=== PATIENT | male | born 1995 | race Caucasian/White ===

== ENCOUNTER 2024-12-26 16:21 | Emergency (ER) | payer OTHER, SELFPAY ==
--- NOTE | 2024-12-26 16:52 | ED_ITS ---
<Statement entered by Rei Hart DO - 12/27/24 00:03> I was consulted by the VANESSA, and we discussed the complexity of problems being addressed. I approved the treatment and management plan for this patient's care in the emergency department, thus performing a substantive portion of the medical decision making. Rei Hart DO Discharge Plan Disposition Patient Disposition: Home, Self-Care Prescriptions Prescriptions: New amoxicillin-pot clavulanate 875-125 mg tablet 1 tab PO Q12H 10 Days Qty: 20 0RF No Action fluoxetine 20 mg capsule 20 mg PO DAILY amoxicillin-pot clavulanate 875-125 mg tablet 1 tab PO BID 10 Days Qty: 20 0RF benzonatate 100 mg capsule 100 mg PO TID PRN (Reason: cough) Qty: 30 0RF Referrals Follow up/Referrals: Provider,Referral, MD [Primary Care Provider, Medical] - See instructions Activity Restrictions/Add. Instructions Additional Instructions/Restrictions: Thank you for allowing us to care for you today. Your symptoms are consistent with a sinus infection given how long they have been going on. Your wheezing may be related to illness but can also be caused by asthma. Please use 4 puffs of the albuterol inhaler every 4 hours as needed for wheezing or while you are sick. You received a one-time steroid dose today. The steroid stays in your system for up to 3 days and will help with airway inflammation. Follow-up with a primary care provider for any symptoms. Return to the emergency department if you have any shortness of breath or continued wheezing. Clinical Impressions Clinical Impression: Acute sinusitis with symptoms > 10 days, Wheezing Instructions Patient Instructions: Sinusitis, Albuterol Print Language Print Language: Tamazight Discharge ED Provider: Rei Hart General Adult HPI <YAMILEX Gamble - Last Filed: 12/26/24 19:55> General Chief complaint: Upper Respiratory Infection Stated complaint: Sent by [facility] xray back & Chest Time Seen by Provider: 12/26/24 16:52 History of Present Illness HPI narrative: This is a 29-year-old male presenting to the emergency department today after being sent in from [facility] for x-ray. Patient reports 2 weeks of upper res piratory symptoms that progressed to pain in his bilateral sinuses. Now the patient feels the infection is in his chest. He reports feeling like he is wheezing. He has never had a known wheezing illness in the past. He denies any chest pain or shortness of breath though notes it is harder to take a deep breath than it typically is. He has not had a fever. No nausea, vomiting, abdominal pain. He does not have a primary care provider. Related Data Home Medications ?Medication ?Instructions ?Recorded ?Confirmed fluoxetine 20 mg capsule 20 mg PO DAILY 12/21/2412/16 Previous Rx's ?Medication ?Instructions ?Recorded amoxicillin 875 mg-potassium 1 tab PO BID 10 days #20 tabs 12/21/24 clavulanate 125 mg tablet benzonatate 100 mg capsule 100 mg PO TID PRN cough #30 caps 12/23/24 amoxicillin 875 mg-potassium 1 tab PO Q12H 10 days #20 tabs 12/26/24 clavulanate 125 mg tablet Allergies Allergy/AdvReac Type Severity Reaction Status Date / Time No Known Allergies Allergy Verified 12/26/24 15:57 [facility] <YAMILEX Gamble - Last Filed: 12/26/24 19:55> [facility] Disclaimer: The information contained in this section may have been updated after the patient was seen, as this information can be updated by other users. Medical History Right clavicle fracture History of fracture of clavicle History of depression Hx of bipolar disorder History of anxiety Surgical History Hx of neck surgery Social History Smoking Status: Current every day smoker smoking status start date: Vape alcohol intake: never current occupational status: employed Travel in the last 8 weeks?: None Have you lived/traveled outside US in past 30 days?: No Contact w/someone who lives/traveled outside US past 30 days?: No Exposure to someone with infectious disease in past 14 days?: No Do you have a fever (greater than 100.4 F or 38 C)?: No Have you tested positive for COVID-19?: No Exposed to someone with COVID-19 in past 14 days?: No Do you have a sore throat?: No Do you have a cough?: No Do you have any weakness?: No Do you have any diarrhea?: No Are you experiencing any unusual bleeding?: No Do you have any muscle aches/pain?: No Do you have any abdominal pain?: No Are you experiencing loss of taste or smell?: No <YAMILEX Gamble - Last Filed: 12/26/24 19:55> ROS Obtained: Yes Systems reviewed as appropriate & no additional complaints except as documented Physical Exam <YAMILEX Gamble - Last Filed: 12/26/24 19:55> General General appearance: alert and in no apparent distress Head Head exam: atraumatic and normocephalic Neck Neck exam: Present full ROM Respiratory Respiratory exam: Present wheezes and prolonged expiratory phase; Absent stridor or accessory muscle use Expanded Respiratory Exam Location: Left: wheezes (Expiratory wheezes present in all lung avila with prolonged expiratory phase.), Right: wheezes (Expiratory wheezes present in all lung avila with prolonged expiratory phase.), Upper: wheezes (Expiratory wheezes present in all lung avila with prolonged expiratory phase.) and Lower: wheezes (Expiratory wheezes present in all lung avila with prolonged expiratory phase.) Cardiovascular Cardiovascular exam: Present regular rate and normal rhythm Abdominal Exam Abdominal exam: Present soft; Absent distention or tenderness Neurological Exam Neurological exam: Present alert and oriented X3 Medical Decision Making <YAMILEX Gamble - Last Filed: 12/26/24 19:55> Medical Records Screening: Per USPSTF and CDC recommendations, given the prevalence of disease in our region, it is our hospital?s policy to screen for HIV and viral Hepatitis for all patients aged 18 and over and those with ongoing risk factors. Humberto Inquiry Pt receiving controlled substance: No Vital Signs: 12/26/24 16:59 12/26/24 17:02 Temperature 98.4 F Temperature Source Oral Pulse Rate [Left Radial] 64 Respiratory Rate 20 Blood Pressure [Right Arm] 132/73 Blood Pressure Mean [Right Arm] 92 02 Sat by Pulse Oximetry 100 100 Oxygen Delivery Method Room Air Room Air Orders (Tests/Meds): ED MEDICATIONS Generic Name Dose Route Start Last Admin Trade Name Freq PRN Reason Stop Dose Admin Albuterol Sulfate 4 puff 12/26/24 19:47 Albuterol-Hfa 90mcg/Puff Inhaler 8gm IH 01/25/25 19:46 Q4HP PRN Shortness Of Breath Discontinued Medications Generic Name Dose Route Start Last Admin Trade Name Dominga PRN Reason Stop Dose Admin Albuterol Sulfate 20 mg 12/26/24 18:29 12/26/24 18:48 Albuterol 0.083% 2.5 Mg/3 Ml [facility] 12/26/24 18:30 20 mg ONCE ONE Administration Albuterol/Ipratropium 9 ml 12/26/24 17:08 12/26/24 17:35 Ipratropium/Albuterol 3 Ml [facility] 12/26/24 17:09 9 ml ONCE ONE Administration Dexamethasone 10 mg 12/26/24 17:08 12/26/24 17:35 Dexamethasone 4mg Tablet PO 12/26/24 17:09 10 mg ONCE ONE Administration Miscellaneous 1 unit 12/26/24 19:47 Aerochamber/Optihaler [facility] 12/26/24 19:48 ONCE ONE ORDERS Category Date Time Status XR chest portable Stat Exams 12/26/24 17:08 Completed Medical Decision Narrative: In summary, this is a 29-year-old male presenting to the emergency department today for evaluation after being sent in by urgent care. Patient has had over 2 weeks of upper respiratory symptoms including a runny nose and cough. Symptoms now seem to be in his chest with wheezing. This has not happened in the past. Patient denies actual chest pain or shortness of breath. He does feel it is hard to take a deep breath, and in doing so, it causes a coughing fit. On exam patient is well-appearing and in no acute distress. Sitting comfortably on hospital stretcher. Heart sounds are normal. Respiratory rate and effort are normal. There is a prolonged expiratory phase with expiratory wheezing in all lung avila. There is tenderness to the bilateral maxillary sinuses. No tenderness of the frontal sinuses. Differential diagnoses include but are not limited to asthma exacerbation, reactive airway, upper respiratory infection, sinusitis, pneumonia, among others. We will obtain a chest x-ray. We will give DuoNebs and Decadron. Will reassess following treatments. On reassessment, patient continues to have expiratory wheezing in all avila. We will proceed with hour-long albuterol treatment. Chest x-ray is normal with no acute infiltrate or sign of infection. 7:50 PM Patient does not wish to take the hour-long albuterol treatment at this time. He reports it makes his cough worse. He prefers an albuterol inhaler. He understands recommendation is for an hour-long albuterol treatment, however he is refusing that at this time. Patient was given an albuterol MDI and instructed on use. Augmentin was sent to the patient's pharmacy to treat his acute sinusitis. A list of primary care providers accepting new patients was given to the patient and he will call to arrange a new patient visit. Return precautions were discussed and understood. Vital signs remain normal. All questions have been answered and he is comfortable with discharge at this time. <Rei Hart, DO - Last Filed: 12/26/24 18:26> Medical Records Medical records reviewed: Yes I reviewed the patient's medical records. Vital Signs: 12/26/24 16:59 12/26/24 17:02 Temperature 98.4 F Temperature Source Oral Pulse Rate [Left Radial] 64 Respiratory Rate 20 Blood Pressure [Right Arm] 132/73 Blood Pressure Mean [Right Arm] 92 02 Sat by Pulse Oximetry 100 100 Oxygen Delivery Method Room Air Room Air Orders (Tests/Meds): ED MEDICATIONS Generic Name Dose Route Start Last Admin Trade Name Freq PRN Reason Stop Dose Admin Albuterol Sulfate 4 puff 12/26/24 19:47 Albuterol-Hfa 90mcg/Puff Inhaler 8gm [facility] 01/25/25 19:46 Q4HP PRN Shortness Of Breath Discontinued Medications Generic Name Dose Route Start Last Admin Trade Name Freq PRN Reason Stop Dose Admin Albuterol Sulfate 20 mg 12/26/24 18:29 12/26/24 18:48 Albuterol 0.083% 2.5 Mg/3 Ml [facility] 12/26/24 18:30 20 mg ONCE ONE Administration Albuterol/Ipratropium 9 ml 12/26/24 17:08 12/26/24 17:35 Ipratropium/Albuterol 3 Ml [facility] 12/26/24 17:09 9 ml ONCE ONE Administration Dexamethasone 10 mg 12/26/24 17:08 12/26/24 17:35 Dexamethasone 4mg Tablet PO 12/26/24 17:09 10 mg ONCE ONE Administration Miscellaneous 1 unit 12/26/24 19:47 Aerochamber/Optihaler [facility] 12/26/24 19:48 ONCE ONE ORDERS Category Date Time Status XR chest portable Stat Exams 12/26/24 17:08 Completed ECG Data Tracing #1: I reviewed this ECG and interpreted as documented below: EKG personally turbid by me demonstrates sinus bradycardia with a rate of 57 bpm, normal axis, no LA prolongation, narrow QRS, no QTc prolongation. No ST elevation or depression. No overt signs of ischemia or arrhythmia. No T wave inversions in the inferior leads. Critical Care <YAMILEX Gamble - Last Filed: 12/26/24 19:55> Critical Care Time Critical Care Time: No
--- OUTSIDE RECORDS SUMMARY | 2024-12-26 16:54 | XMS_ITS | Encounter Summary ---
Author Organization [facility] Address [address] [place] [address] Care Team Providers Care Painter And Decorator Apprentice Name Role Phone Levi Turner APRN Primary Care Provide r Encounter Details Date Type Department Care Team (Late st Contact Info) Description 05/06/2013 Conversion Encounter [facility] HISTORICAL CONV [address] [place] [address] Interface, See Report Social History Tobacco Use Types Packs/Day Years Used Date Smoking Tobacco: Never Assessed Sex and Gender Information Value Date Recorded Sex Assigned at Not on file Legal Sex Male 10:54 AM EDT Gender Identity Not on file Sexual Orientation Not on file documented as of this encounter ED Notes * Interface, See Report - 05/06/2013 10:23 PM EST Clinical Report - Physicians/Mid Levels [facility] Emergency Department [address] [place], [place] [id number] 05/06/2013 Patient: JEVON ALONSO Sex: M : 1995 Age: 17y Arrived- By private vehicle. Historian- patient. HISTORY OF PRESENT ILLNESS Chief Complaint: rib pain for several months. It is described as located in the left chest area. Is still present. At its maximum, severity described as mild. When seen in the E.D., severity described as mild. Modifying factors- worsened by movement, cough and deep breaths. No nausea, vomiting, difficulty breathing or diaphoresis. (worse with cough and deep breath and some moving). REVIEW OF SYSTEMS No fever, chills, cough, pedal edema or skin rash. All systems otherwise negative, except as recorded above. PAST HISTORY See nurses notes. No history of hypertension or diabetes mellitus. Additional Problems: Palpitations. Immunizations. Medications: None. Allergies: None. SOCIAL HISTORY Nonsmoker. No alcohol use or drug use. ADDITIONAL NOTES The nursing notes have been reviewed. PHYSICAL EXAM Appearance: Alert. Oriented X3. No acute distress. Eyes: Eyes normal inspection. ENT: Pharynx normal. Neck: Normal inspection. Neck supple. No JVD, lymphadenopathy or thyromegaly. CVS: Normal heart rate and rhythm. Heart sounds normal. Respiratory: No respiratory distress. Chest pain reproducible with palpation of the lateral chest wall, with movement of the left arm and with deep breathing. Breath sounds normal. No splinting, decreased air movement, rales, rhonchi or wheezes. Abdomen: Soft and nontender. Bowel sounds normal. No mass. Skin: Skin warm and dry. Normal skin color. No rash. Extremities: No lower extremity edema. Neuro: Oriented X 3. No motor deficit. LABS, X-RAYS, AND EKG Chest X-ray: No acute disease. PROGRESS AND PROCEDURES Disposition: Discharged. Condition: good and stable. CLINICAL IMPRESSION Costochondritis. INSTRUCTIONS (ibufprofen for discomfort). Warnings: GENERAL WARNINGS: Return or contact your physician immediately if your condition worsens or changes unexpectedly, if not improving as expected, or if other problems arise. Follow-up: Follow up with your doctor. (Electronically signed by Markus Messina M.D. 05/07/2013 4:27) documented in this encounter Plan of Treatment Not on file documented as of this encounter Procedures Procedure Name Priority Date/Time Associated Diagnosis Comments XR CHEST PA AND LATERAL Routine 05/07/2013 1:19 AM EST documented in this encounter Results * X-RAY CHEST PA AND LATERAL (05/07/2013 1:19 AM EST) Anatomical Region Laterality Modality Body, Chest N/A Radiographic Kailyn ging 05/07/2013 1:19 AM EST Narrative 05/07/2013 9:07 AM EST HISTORY: chest pain PA AND LATERAL CHEST: FINDINGS: The heart, mediastinum and pulmonary vasculature appear within normal limits. The lungs appear mildly hyperinflated and clear. No edema, effusion or pneumothorax is seen. IMPRESSION- No evidence of active chest disease. No significant interval change from previous 11/20/2011 exam. FAX TO: A E: 05/07/2013 [employer] Gamaliel [employer] Released Date Time- 05/07/132211 Procedure Note Ganga Powell MD - 01/06/2015 HISTORY: chest pain PA AND LATERAL CHEST: FINDINGS: The heart, mediastinum and pulmonary vasculature appear within normal limits. The lungs appear mildly hyperinflated and clear. No edema, effusion or pneumothorax is seen. IMPRESSION- No evidence of active chest disease. No significant interval change from previous 11/20/2011 exam. FAX TO: Livia E: 05/07/2013 [employer] Gamaliel [employer] Released Date Time- 05/07/132211 Markus Messina MD [facility] MICHELLE Final Result documented in this encounter Visit Diagnoses Not on filedocumented in this encounter Care Teams Painter And Decorator Apprentice Relationship Specialty Start Date End Date Levi Turner APRN PCP - General Internal Medicine 06/26/19 documented as of this encounter
--- OUTSIDE RECORDS SUMMARY | 2024-12-26 16:54 | XMS_ITS | Clinical Summary ---
Author Organization [facility] Address [address] [place] [address] Care Team Providers Care Manager Custom Name Role Phone Levi Turner JESICA Primary Care Provide r Allergies No known active allergies Medications CLARAVIS 30 MG capsule TK 1 C PO BID 06/19/2019 Active Thiamine 50 MG capsuleIndicati ons:Alcohol abuse Take 1 capsule by mouth Daily. 30 each 11 06/26/2019 Active escitalopram (Lexapro) 10 MG tabletIndicatio ns:Bipolar 1 disorder, mixed Take 1 tablet by mouth Daily. 30 tablet 07/11/2019 Active Active Problems Problem Noted Date Diagnosed Date Depression 06/26/2019 Acne vulgaris 06/26/2019 Overview (06/26/2019): Impression: takes claravis 30 mg capsules Alcohol abuse 06/26/2019 Overview (06/26/2019): Impression: been drinking since he was 16. Mother passed at age 14 and watched a friend drown while trying to save him. Assessment & Plan (07/02/2019 11:04 AM EDT): Psychological condition is worsening. Medication changes per orders. Referral to psychiatry. Psychological condition will be reassessed in 2 weeks. Bipolar 1 disorder, mixed 06/26/2019 Assessment & Plan (07/02/2019 11:03 AM EDT): Psychological condition is newly identified. Medication changes per orders. Referral to psychiatry. Psychological condition will be reassessed in 2 weeks. Patient started on Vraylar this visit. PTSD (post-traumatic stress disorder) 06/26/2019 Immunizations Immunization Administration Dates Next Due Tdap 10/25/2018 flucelvax quad pfs =>4 YRS 06/26/2019 Family History Medical History Relation Name Comments Heart disease Father Hypertension Father Diabetes Maternal Grandmother Thyroid disease Mother Cancer Paternal Grandfather Relation Name Status Comments Father Maternal Grandmother Mother Paternal Grandfather Social History Tobacco Use Types Packs/Day Years Used Date Smoking Tobacco: Light Smoker Smokeless Tobacco: Current Alcohol Use Standard Drinks/Week Comments Yes 60 (1 standard drink = 0.6 oz pu re alcohol) AUDIT-C Answer Date Recorded Frequency of Alcohol Consumption 4 or more times a week 06/26/2019 Average Number of Drinks 10 or more 020 Frequency of Binge Drinking Weekly 06/15 Abuse Screen Answer Date Recorded Unsafe at Home or Work/School Not on file Feels Threatened by Someone? Not on file 12/2022 Does Anyone Keep You from Co ntacting Others or Doint Things Outside the Home? Not on file 01/23/2023 Physical Sign of Abuse Present Not on file 1 Housing Stability Answer Date Recorded Current Living Arrangements Not on file 12/2022 Potentially Unsafe Housing Conditions Not on karen e 01/23/2023 Family and Community Support Answer Star e Recorded Help with Day-to-Day Activities Not on file 01/23/2023 Lonely or Isolated Not on file 01/23/2023 Employment Answer Date Recorded Do you want help finding or keeping work or a suzanne b? Not on file 01/23/2023 Disabilities Answer Date Recorded Concentrating, Remembering, or Making Decisions Difficulty Not on file 01/23/2023 Doing Errands Independently Difficulty Not on fi le 01/23/2023 Education Answer Date Recorded Help with school or training? Not on file Preferred Language Not on file 01/23/2023 Sex and Gender Information Value Date Recorded Sex Assigned at Not on file Legal Sex Male 10:54 AM EDT Gender Identity Not on file Sexual Orientation Not on file Last Filed Vital Signs Vital Sign Reading Time Taken Comments Blood Pressure 160/100 06/26/2019 1:35 PM EDT Pulse 76 06/26/2019 1:35 PM EDT Temperature 37 C (98.6 F) 02/04/2016 11:17 AM EDT Respiratory Rate 16 06/26/2019 1:35 PM EDT Oxygen Saturation 98% 06/26/2019 1:35 PM EDT Inhaled Oxygen Concentration - - Weight 79.8 kg (176 lb) 06/26/2019 1:35 PM EDT Height 170.2 cm (5' 7 ) 06/26/2019 1:35 PM EDT Body Mass Index 27.57 06/26/2019 1:35 PM EDT Plan of Treatment Health Maintenance Due Date Last Done Comments ANNUAL PHYSICAL 06/26/2019 HEPATITIS C SCREENING 06/26/2019 COVID-19 Vaccine (2023-2 5 season) 2024 INFLUENZA VACCINE 01/15/2025 06/26/2019, 06/26/2019 TDAP/TD VACCINES (3 - Td or Tdap) 10/25/2028 10/25/2018, 08/21/2016 Pneumococcal Vaccine 0-49 Aged Out No longer eligible based on patient's age to complete this topic Insurance Care Teams Manager Custom Relationship Specialty Start Date End Date Levi Turner APRN PCP - General Internal Medicine 06/26/19
--- OUTSIDE RECORDS SUMMARY | 2024-12-26 16:54 | XMS_ITS | Clinical Summary ---
Author Organization [facility] Address [address] [place] [address] Care Team Providers Care Glue Sprayer Name Role Phone Unavailable Primary Care Provider Unavailabl e Family History Medical History Relation Name Comments Heart attack Other Relation Name Status Comments Other Social History Tobacco Use Types Packs/Day Years Used Date Smoking Tobacco: Never Smokeless Tobacco: Current Sex and Gender Information Value Date Recorded Sex Assigned at Not on file Legal Sex Male 8:00 PM EDT Gender Identity Not on file Sexual Orientation Not on file Last Filed Vital Signs Vital Sign Reading Time Taken Comments Blood Pressure 135/80 03/20/2019 2:14 PM EST Pulse - - Temperature - - Respiratory Rate 16 03/20/2019 2:14 PM EST Oxygen Saturation - - Inhaled Oxygen Concentration - - Weight 85.4 kg (188 lb 4.4 oz) 03/20/2019 2:14 P M EST Height 170.2 cm (5' 7 ) 03/20/2019 2:14 PM EST Body Mass Index 29.49 03/20/2019 2:14 PM EST Plan of Treatment Not on file Insurance AN[employer]
[2024-12-26 16:59] VITALS: BP 132/73; PULSE 64; RESP 20; TEMP 36.9; O2SAT 100; BMI 21.9
[2024-12-26 17:02] VITALS: O2SAT 100
--- NOTE | 2024-12-26 17:08 | XR_ITS ---
PROCEDURE INFORMATION: Exam: XR Chest Exam date and time: 12/26/2024 5:15 PM Age: 29 years old Clinical indication: Cough and wheezing; Additional info: Wheezing, cough x 10 days TECHNIQUE: Imaging protocol: Radiologic exam of the chest. Views: 1 view. COMPARISON: No relevant prior studies available. FINDINGS: Lungs: Clear lungs. Pleural spaces: No pneumothorax. No sizable pleural effusion. Heart/Mediastinum: No cardiomegaly. Bones/joints: Left clavicle fixation. IMPRESSION: Clear lungs.
--- NOTE | 2024-12-26 17:13 | ECG_ITS ---
APPROVED REPORT Exam: Resting ECG HR:57 bpm ECG Measurements Heart Rate 57 AXES WV 155 P 75 QRSd 99 QRS 87 QT 396 T 79 QTc 390 Conclusion Sinus bradycardia Normal axis Normal intervals No STEMI Electronically signed by : Rei Hart, 12/26/2024 23:44:21
[2024-12-26] MEDS: IPRATROPIUM/ALBUTEROL 3 ML NEB 9 ML IH (17:35)
[2024-12-26] MEDS: DEXAMETHASONE 4MG TABLET 10 MG PO (17:35)
[2024-12-26] MEDS: ALBUTEROL 0.083% 2.5 MG/3 ML NEB 20 MG IH (18:48)
--- NOTE | 2024-12-26 19:33 | PC.NURSE ---
Went in to assess pt for first time, stalin jean was running laying on counter, when asked if he finished it he stated NO, It hurts toio bad. Pt also states he wants to leave. Dr friedman.
[2024-12-26] MEDS: ALBUTEROL-HFA 90MCG/PUFF INHALER 8GM 4 PUFF IH (19:57)
[2024-12-26] MEDS: AEROCHAMBER/OPTIHALER 1 UNIT MC (19:57)
[2024-12-26 20:10] VITALS: BP 140/90; PULSE 91; RESP 13; TEMP 36.9; O2SAT 100
== END 2024-12-26 20:12 | disposition home or self-care (01) ==
PROVIDERS: Emergency Provider Student in an Organized Health Care Education/Training Program
DX: R06.2 Wheezing (principal); J01.90 Acute sinusitis, unspecified; F17.200 Nicotine dependence, unspecified, uncomplicated
CPT/HCPCS: 71045; 93005; 99283; J8540

== ENCOUNTER 2025-03-09 09:15 | Outpatient (CLI) | payer OTHER, SELFPAY ==
--- OUTSIDE RECORDS SUMMARY | 2023-10-16 08:15 | XMS_ITS | Continuity of Care Document ---
Author Organization [facility] Address [address] [place] [address] Phone Care Team Providers Care Sound Effects Person Name Role Phone Jerri Feliciano APRN Unavailable Unavail able Procedures Procedure Date OFFICE/OUTPATIENT VISIT, [facility] Advance Directives Directive Yes / No Effective Date File Name No Information Encounters Encounter Description Practice Location Reason(s) For Visit Diagnoses Date Provider Encounter Disposition OFFICE/OUTPA TIENT VISIT, [facility], [address] [place], [address], [place] tel:[phone] [facility] MAT Follow-up (chief complaint) Alcohol dependence, uncomplicated 4 Braden Guthrie. [address] [place] [address], [id number], [place]. tel:[phone] Family History Family Member Type Diagnosis Age At Onset No Information Payers Payer name Insurance type Identifiers Authorization(s) Com jackie Turner Medicaid O shaan ID: [id number] Name: Coverage Status Eligibility Check on: [id number] nship to Subscriber: selfPayer Address: [address] [address], [place], [place], [id number] Phone: Medicaid Wrap Payer MC r ID: [id number] Name: Coverage Status Eligibility Check on: [id number] nship to Subscriber: selfPayer Address: [address], [place], [place], [id number], [place] Phone: Social History Type Description Quantity Date Captured Comments Alcohol Use Details Unknown Caffeine Use Details Unknown Tobacco Use Status No Information Smoking Status No Information Sex Male Current Gender Male (finding) Chief Complaint And Reason For Visit From encounter dated '10/16/2023 13:15'. MAT Follow-up (chief complaint). Description: MAT follow-up. Current medication/dose 1st injection today. Compliance: Drug Test completed, BH in last Month and UDS today WNL. Comments: pt at [place], pt there for alcohol, pt getting first injection today no DC date set. Plan Of Treatment Date Type Action Status Goal Preventive Visit. Due on Oct due Goal Depression screening. Due on due History Of Present Illness Encounter Date Complaint History Of Prese nt Illness MAT Follow-up MAT follow-up. C urrent medication/dose 1st injection today. Compliance: Drug Test completed, BH in last Month and UDS today WNL. Comments: pt at [place], pt there for alcohol, pt getting first injection today no DC date set. Functional Status Date Description Comments No Information Instructions Date Instruction Additional Infor mation pt identified via [facility] today, seen pt via zoom at [facility] today pt getting monthly vivatrol next appt in 4 weeks Related to Alcohol dependence, uncomplicated Assessments Type Assessment Date assessment Alcohol dependence, uncomplicate d Mental Status Date Description Comments Orientation - Oriented to time, place, person, situation.
--- NOTE | 2025-03-09 09:17 | XR_ITS ---
PROCEDURE INFORMATION: Exam: XR Left Elbow Exam date and time: 03/09/2025 9:21 AM Age: 29 years old Clinical indication: Pain; Elbow; Left; Additional info: Pain with movement TECHNIQUE: Imaging protocol: Radiologic exam of the left elbow. Views: 3 or more views. COMPARISON: No relevant prior studies available. FINDINGS: Bones/joints: There are no fractures or dislocations in the left elbow. Soft tissues: Soft tissues are unremarkable. IMPRESSION: No evidence of osseous injury to the left elbow.
--- OUTSIDE RECORDS SUMMARY | 2025-03-09 09:18 | XMS_ITS | Encounter Summary ---
Author Organization [employer] ([place], [place], [place], [place], [place]) Address [address] [place] [address] Care Team Providers Care Warehouse Delivery Manager Name Role Phone Unavailable Primary Care Provider Unavailabl e Encounter Details Date Type Department Care Team (Late st Contact Info) Description 05/13/2018 Transcribed Document [facility] [place] [facility] [place] [address] ProviderSherine MD [address] [place] [id number] Social History Tobacco Use Types Packs/Day Years Used Date Smoking Tobacco: Never Assessed Sex and Gender Information Value Date Recorded Sex Assigned at Not on file Legal Sex Male 5:59 PM CDT Gender Identity Not on file Sexual Orientation Not on file documented as of this encounter Miscellaneous Notes * [employer]ner Conversion Note - Sherine ProviderMD - 05/13/2018 1:21 AM ASSEMBLY RIVETER ED Discharge Entered On: 05/13/2018 1:21 EST Performed On: 05/13/2018 1:21 EST by ALEXANDREA CHILDERS RN Discharge Process Patient Disposition : Discharge Personal Belongings With Patient : Yes Patient Education Completed : Yes Teaching Evaluation : Verbalizes understanding IV Discontinued : Not applicable Nursing Documentation Completed : Yes ALEXANDREA CHILDERS RN - 05/13/2018 1:21 EST ED Discharge Discharge To : Home with ambulatory/outpatient follow-up Mode Of Departure : Ambulatory Accompanied By : Mother Discharge Instructions Reviewed With, Opportunity For Questions Given : Patient Prescriptions Given to Patient : Yes Number of Prescriptions Given : 1 ALEXANDREA CHILDERS RN - 05/13/2018 1:21 EST Electronically signed by Tiffanie [facility] Conversion Planning Official Pete at 08/01/2022 5:11 PM CDT documented in this encounter Plan of Treatment Not on file documented as of this encounter Visit Diagnoses Not on filedocumented in this encounter
--- OUTSIDE RECORDS SUMMARY | 2025-03-09 09:18 | XMS_ITS | Encounter Summary ---
Author Organization [employer] ([place], [place], [place], [place], [place]) Address [address] [place] [address] Care Team Providers Care Production Control Expediter Name Role Phone Unavailable Primary Care Provider Unavailabl e Encounter Details Date Type Department Care Team (Late st Contact Info) Description 05/13/2018 Transcribed Document [facility] [place] [facility] [place] [address] ProviderSherine MD [address] [place] [id number] Social History Tobacco Use Types Packs/Day Years Used Date Smoking Tobacco: Never Assessed Sex and Gender Information Value Date Recorded Sex Assigned at Not on file Legal Sex Male 5:59 PM CDT Gender Identity Not on file Sexual Orientation Not on file documented as of this encounter Miscellaneous Notes * [employer]ner Conversion Note - Sherine ProviderMD - 05/13/2018 1:22 AM 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 TEACHER [facility] [address] [place] [address] Patient Information Name: JEVON ALONSO Age: 22 Years Date of : 1995 Arrival Time: 05/12/2018 23:56:00 Diagnosis Anxiety Primary Care Physician: FLORENCE BENSON DR Provider Information Primary Provider: CLAUDE LU Secondary Provider: JEVON ALONSO has been given the following list of patient education materials, prescriptions and follow-up instructions: Follow-up Instructions: With: Address: When: Follow up with primary care provider Within 2 to 3 days Patient Education Materials: Generalized Anxiety Disorder Generalized anxiety disorder (TERRI) is a mental disorder. It interferes with life functions, including relationships, work, and school. TERRI is different from normal anxiety, which everyone experiences at some point in their lives in response to specific life events and activities. Normal anxiety actually helps us prepare for and get through these life events and activities. Normal anxiety goes away after the event or activity is over. TERRI causes anxiety that is not necessarily related to specific events or activities. It also causes excess anxiety in proportion to specific events or activities. The anxiety associated with TERRI is also difficult to control. TERRI can vary from mild to severe. People with severe TERRI can have intense waves of anxiety with physical symptoms (panic attacks). SYMPTOMS The anxiety and worry associated with TERRI are difficult to control. This anxiety and worry are related to many life events and activities and also occur more days than not for 6 months or longer. People with TERRI also have three or more of the following symptoms (one or more in children): ??? Restlessness. ? Fatigue. ??? Difficulty concentrating. ? Irritability. ??? Muscle tension. ??? Difficulty sleeping or unsatisfying sleep. DIAGNOSIS TERRI is diagnosed through an assessment by your health care provider. Your health care provider will ask you questions about?your mood,?physical symptoms, and events in your life. Your health care provider may ask you about your medical history and use of alcohol or drugs, including prescription medicines. Your health care provider may also do a physical exam and blood tests. Certain medical conditions and the use of certain substances can cause symptoms similar to those associated with TERRI. Your health care provider may refer you to a mental health specialist for further evaluation. TREATMENT The following therapies are usually used to treat TERRI: ??? Medication. Antidepressant medication usually is prescribed for long-term daily control. Antianxiety medicines may be added in severe cases, especially when panic attacks occur. ? Talk therapy (psychotherapy). Certain types of talk therapy can be helpful in treating TERRI by providing support, education, and guidance. A form of talk therapy called cognitive behavioral therapy can teach you healthy ways to think about and react to daily life events and activities. ??? Stress management?techniques. These include yoga, meditation, and exercise and can be very helpful when they are practiced regularly. A mental health specialist can help determine which treatment is best for you. Some people see improvement with one therapy. However, other people require a combination of therapies. This information is not intended to replace advice given to you by your health care provider. Make sure you discuss any questions you have with your health care provider. Document Released: 07/29/2013 Document Revised: 04/24/2015 Document Reviewed: 07/29/2013 [employer] Interactive Patient Education ? 2017 [employer] Allergies: No Known Medication Allergies Medication Information: Prescription Display hydrOXYzine (Vistaril 25 mg oral capsule) 1 Cap, Oral, Q6H, PRN as needed for anxiety, # 20 Cap, 0 Refill(s) Laboratory or Other Results This Visit (last charted value for your 05/12/2018 visit) Urinalysis 05/13/18 00:08:00 Urine Nitrite: Negative Urine Leukocyte Esterase: Negative Urine Appearance: Clear Urine Glucose Dipstick: Negative Urine Blood Dipstick: Negative Urine Type: U CleanCatch Urine Urobilinogen Dipstick: 0.2 EU/dL Urine Protein Dipstick: 30 Ur Squamous Epithelial Cells: 0-2 /HPF Urine Color: Yellow Urine Ketones Dipstick: Negative Ur Mucous: Trace Urine pH Dipstick: 8.0 -- Normal range between ( 6.0 and 8.0 ) Urine Bilirubin Dipstick: Negative Urine Specific [place]: 1.020 -- Normal range between ( 1.005 and 1.030 ) Toxicology 05/13/18 00:08:00 UDS Amp: Negative UDS Dulce: Negative UDS Benzo: Negative UDS Todd: Negative UDS Meth: Negative UDS Methamp: Negative UDS Opi: Negative UDS PCP: Negative UDS TCA: Negative UDS THC: Positive Medication Comment: Procedures: Laboratory Orders Name Status UAMIC Completed UAMICRX Completed UDS3 Completed Radiology Orders Name Status CR Chest 1 Vw Portable Ordered Cardiology Orders No cardiology orders were placed. This statement is to verify that JEVON ALONSO was seen at [facility] Emergency Department on ,05/13/2018 01:22:11. This is not a work excuse, if a work excuse was needed it will be in addition to this statement as a separate form. IMPORTANT: The examination and treatment you have received in the Emergency Department has been done to provide an appropriate evaluation and stabilizing treatment on an emergency basis only. Given the limited resources, it is not meant to be a substitute for complete medical care. The follow-up doctor you named will receive a copy of your records and all test reports. IT IS IMPORTANT THAT YOU SCHEDULE A FOLLOW-UP APPOINTMENT AND ARE RE-EVALUATED. You should report any new complaints, symptoms, or remaining problems at that time. IT IS IMPOSSIBLE FOR THE EMERGENCY DEPARTMENT TO RECOGNIZE AND TREAT ALL ELEMENTS OF INJURY OR ILLNESS IN A SINGLE VISIT. If you have been referred to a specialist physician, it means that we believe you may have a condition that requires the expertise of a specialist. KEEP IN MIND THAT THE SPECIALIST HAS HIS/HER OWN OFFICE POLICIES WHICH MAY REQUIRE PROPER INSURANCE OR PAYMENT UP FRONT BEFORE THE SPECIALIST WILL SEE YOU. It is your responsibility to call the specialist physician to make an appointment. We do not have the ability to identify specialists/physicians that work with specific insurance companies. Please be advised that all financial charges or billing practices are determined by that practice, not the hospital. If your insurance company requires that you see a specialist from their approved list, it is your responsibility to contact your insurance company to make those arrangements. It is also your responsibility to follow any other requirements of your insurance company necessary to obtain coverage for claims submitted. If you had special tests, such as EKG???s or X-rays, the interpretation of your tests given to you by the Emergency Dept. Physician is a preliminary report. Some fractures and illnesses fail to show up on preliminary tests. We will review them again within 24-48 hours. We will call you if there are any new suggestions. If your symptoms continue notify your physician. After you leave, you should follow the instructions below. In all events, you may obtain a copy of your Emergency Department visit from Medical Records. Please call to be directed to this department. We will bill your insurance; however, you are responsible today for any co-pay amounts. You will receive a separate bill for any services you may have received including: emergency, radiology, or pathology physicians. Please be sure we have an accurate contact phone number and address, should we need to call you for any reason. CIGARETTE SMOKING: The facts are clear; cigarette smoking will shorten your life. Smoking can cause many illnesses along the way. As a healthcare provider, [facility] recommends that you stop smoking. Assistance with quitting is available by contacting 5-452-TKRD-NOW. This is a free resource providing counseling, support, and referral. Or you may contact your personal physician. As part of your treatment plan, your physician may have prescribed a limited course of a controlled substance. This medication may be given to help people with moderate or severe pain or for other medical conditions, but there are risks involved with treatment. Common side effects may include nausea, constipation, drowsiness, sweating, itching, dry mouth, and rash. More serious side effects may include cognitive and motor impairment, like problems with thinking, concentrating, alertness, and movement (e.g. slowed reflexes), and driving and operating heavy machinery can be dangerous. It is important for you to talk to your physician if you have these side effects or questions. These controlled substances can produce physical dependence and be habit-forming if taken for an extended period of time, which means that the body has gotten used to them and may experience withdrawal symptoms if they are abruptly stopped. Withdrawal symptoms can include runny nose, sweating, goose bumps, diarrhea, abdominal cramping, rapid heartbeat, difficulty sleeping, and nervousness. The home medications listed are only as accurate as the information you provided. Please continue taking all of your medications prescribed by your Primary Care Provider unless specifically told to change or discontinue the medication. Please direct any questions regarding your home medications to your Primary Care Provider. YOU ARE THE MOST IMPORTANT FACTOR IN YOUR RECOVERY. ?? Follow your instructions carefully ?? Take your medicines as prescribed ?? Most important, see a provider as discussed. If you do not have a provider, we can provide a list of clinics Confidential This message and accompanying documents are covered by Electronic Communications Privacy Act 18 U.S.C. ???Sections 0780-3944,?? and contain information intended for the specified individual(s) only. This information is confidential. If you are not the intended recipient or an agent responsible for delivering it to the intended recipient, you are hereby notified that you have received the document in error and that any review, dissemination, copying, or the taking of any action based on the contents of this information is strictly prohibited. If you have received this communication in error, please notify us immediately by email, and delete the original message. STROKE is an EMERGENCY [employer] [facility] F.A.S.T! FACE ?? Facial droop ?? Uneven smile ARM ?? Arm numbness ?? Arm weakness SPEECH ?? Slurred speech ?? Difficulty speaking or understanding TIME ?? Call 911 and get to the hospital immediately Have the ambulance go to the nearest stroke center. STROKE Risk Factors High blood pressure High cholesterol Heart Disease Diabetes Smoking Heavy alcohol use Physical inactivity and obesity Atrial Fibrillation (irregular heartbeat) Family history of stroke Reminder: Be sure to sign up for the [facility] patient portal, which gives you 07/11 access to your medical information ??? including these discharge instructions ??? using your computer, smartphone, or tablet. Just go to [facility] to get started. Questions? Call . Acknowledgment I hereby acknowledge receipt of these instructions and information above. I understand that I have received Emergency Treatment only which is not a substitute for complete medical care and acknowledge that all of my medical problems may not be known, identified, or treated prior to my release. I UNDERSTAND THE NEED TO ARRANGE FOLLOW-UP CARE WITH THE PHYSICIAN INDICATED. I UNDERSTAND THAT I SHOULD CONTACT MY PHYSICIAN IMMEDIATELY OR RETURN TO THE EMERGENCY DEPARTMENT IF MY CONDITION WORSENS, FAILS TO IMPROVE, OR NEW SYMPTOMS APPEAR. Vital Signs B/P PULSE RESP. RATE TEMPERATURE PULSE OX Signature of Emergency Provider Date / Time Signature of Emergency Nurse Date / Time Acknowledgment I hereby acknowledge receipt of these instructions and information above. I understand that I have received Emergency Treatment only which is not a substitute for complete medical care and acknowledge that all of my medical problems may not be known, identified, or treated prior to my release. I UNDERSTAND THE NEED TO ARRANGE FOLLOW-UP CARE WITH THE PHYSICIAN INDICATED. I UNDERSTAND THAT I SHOULD CONTACT MY PHYSICIAN IMMEDIATELY OR RETURN TO THE EMERGENCY DEPARTMENT IF MY CONDITION WORSENS, FAILS TO IMPROVE, OR NEW SYMPTOMS APPEAR. Signature of Patient / Responsible Person Date / Time Please provide a telephone number where you can be reached. The best time to call is between: It is permissible to leave a message if no answer: Yes____ No____ Nurse Providing Instructions: Emergency Physician: Electronically signed by Елена Moreno Conversion Patient Services Technician Georgiener at 08/01/2022 5:07 PM CDT documented in this encounter Plan of Treatment Not on file documented as of this encounter Visit Diagnoses Not on filedocumented in this encounter
--- OUTSIDE RECORDS SUMMARY | 2025-03-09 09:18 | XMS_ITS | Encounter Summary ---
Author Organization [employer] ([place], [place], [place], [place], [place]) Address [address] [place] [address] Care Team Providers Care Operations Liaison Name Role Phone Unavailable Primary Care Provider Unavailabl e Encounter Details Date Type Department Care Team (Late st Contact Info) Description 05/13/2018 Transcribed Document [facility] [place] [facility] [place] [address] ProviderSherine MD [address] [place] [phone] Social History Tobacco Use Types Packs/Day Years Used Date Smoking Tobacco: Never Assessed Sex and Gender Information Value Date Recorded Sex Assigned at Not on file Legal Sex Male 5:59 PM CDT Gender Identity Not on file Sexual Orientation Not on file documented as of this encounter Miscellaneous Notes * Cerner Conversion Note - Historical ProviderMD - 05/13/2018 1:12 AM SUPERVISOR [employer] Electronically signed by Tiffanie [facility] Conversion Surgery Technician Cerner at 08/01/2022 5:13 PM CDT documented in this encounter Plan of Treatment Not on file documented as of this encounter Visit Diagnoses Not on filedocumented in this encounter
--- OUTSIDE RECORDS SUMMARY | 2025-03-09 09:18 | XMS_ITS | Encounter Summary ---
Author Organization [employer] ([place], [place], [place], [place], [place]) Address [address] [place] [address] Care Team Providers Care Sow Farm Manager Name Role Phone Unavailable Primary Care Provider Unavailabl e Encounter Details Date Type Department Care Team (Late st Contact Info) Description 05/13/2018 Transcribed Document [facility] [place] [address] [place] [address] ProviderSherine MD [address] [place] [id number] Social History Tobacco Use Types Packs/Day Years Used Date Smoking Tobacco: Never Assessed Sex and Gender Information Value Date Recorded Sex Assigned at Not on file Legal Sex Male 5:59 PM CDT Gender Identity Not on file Sexual Orientation Not on file documented as of this encounter Miscellaneous Notes * [employer]ner Conversion Note - Historical ProviderMD - 05/13/2018 11:36 AM COMBAT SYSTEMS OPERATOR CR Chest 1 Vw Portable Ordered: 05/13/2018 Modified Reason for Exam: soa 05/13/2018 09:15 05/13/2018 11:36 (LUCINDA TOMPKINS PA) Reviewed by Provider, No further action required x1 documented in this encounter Plan of Treatment Not on file documented as of this encounter Visit Diagnoses Not on filedocumented in this encounter
--- OUTSIDE RECORDS SUMMARY | 2025-03-09 09:19 | XMS_ITS | Encounter Summary ---
Author Organization [employer] ([place], [place], [place], [place], [place]) Address [address] [place] [address] Care Team Providers Care Director Learning Name Role Phone Unavailable Primary Care Provider Unavailabl e Encounter Details Date Type Department Care Team (Late st Contact Info) Description 09/10/2018 Transcribed Document [facility] [place] [facility] [place] [address] ProviderSherine MD [address] [place] [address] Social History Tobacco Use Types Packs/Day Years Used Date Smoking Tobacco: Never Assessed Sex and Gender Information Value Date Recorded Sex Assigned at Not on file Legal Sex Male 5:59 PM CDT Gender Identity Not on file Sexual Orientation Not on file documented as of this encounter Miscellaneous Notes * Cerner Conversion Note - Sherine Martinez MD - 09/10/2018 8:17 PM [facility]T [facility] [address] [place] [address] JEVON ALONSO :1995 Visit Time:09/10/2018 Your Visit Summary Your Care Team Admitting Physician - CLAUDE LU MD-EMR Attending Physician - SIDDHARTH BALBUENA MD-EMR Primary Care Physician - FLORENCE BENSON DR Referring Physician - CLAUDE LU MD-EMR Your Diagnosis Palpitations Rapid heart beat Patient Portal Reminder: Be sure to sign up for the [employer] patient portal, which gives you / access to your medical information ??? including these discharge instructions ??? using your computer, smartphone, or tablet. Just go to community [email or web address] to get started. Questions? Call . You may also obtain a copy of your Emergency Department visit from Medical Records by calling the hospital phone number listed above and asking to be directed to the Medical Records Department. If you had special tests, such as EKG???s or X-rays, the interpretation of your tests given to you by the Emergency Department Physician is a preliminary report. Some fractures and illnesses fail to show up on preliminary tests. These will be reviewed again and we will call you if there are any new suggestions. If your symptoms continue notify your physician. After you leave, you should follow the instructions provided. What to do next Follow-Up Appointments Follow Up with Follow up with primary care provider When Within 2 to 3 days Allergies No Known Medication Allergies Immunizations This Visit No Immunizations Found Medications What How Much When Instructions Next Dose dicyclomine (Bentyl 20 mg oral tablet) 1 Tablet(s) Oral Four Times A Day Duration: 7 Day(s) hydrOXYzine (Vistaril 25 mg oral capsule) 1 Capsule(s) Oral Every 6 Hours as needed for as needed for anxiety hydrOXYzine (Vistaril 25 mg oral capsule) 1 Capsule(s) Oral Four Times A Day as needed for as needed for anxiety Printed Prescription The home medications listed are only as accurate as the information you provided. Please continue taking all of your medications prescribed by your Primary Care Provider unless specifically told to change or discontinue the medication. Please direct any questions regarding your home medications to your Primary Care Provider. Take your medications faithfully. Do NOT skip medication. Do NOT stop taking medications without the direction of a physician. Carry a list of your medications with you at all times, and take this medication list with you to your first follow up visit. Report any side effects. Avoid herbal remedies unless discussed with your physician. As part of your treatment plan, [...] cramping, rapid heartbeat, difficulty sleeping, and nervousness. Please dispose of unused and medications per pharmacy guidance. Test Results Laboratory or Other Results This Visit (last charted value for your 09/10/2018 visit) Hematology 09/10/18 18:54:00 WBC: 11.1 K/uL -- Normal range between ( 4.2 and 9.1 ) RBC: 5.58 Million/uL -- Normal range between ( 4.63 and 6.08 ) Hct: 48.0 % -- Normal range between ( 40.1 and 51.0 ) Hgb: 17.1 Gram/dL -- Normal range between ( 13.7 and 17.5 ) Platelet Count: 357 K/uL -- Normal range between ( 163 and 369 ) MCH: 30.6 pg -- Normal range between ( 25.6 and 32.2 ) MCHC: 35.6 Gram/dL -- Normal range between ( 32.2 and 36.5 ) MCV: 86.0 fL -- Normal range between ( 79.0 and 94.8 ) Slide Review: No Eos %: 0.6 % -- Normal range between ( 0.0 and 7.0 ) Harper #: 0.72 K/uL -- Normal range between ( 0.16 and 1.00 ) Eos #: .07 K/uL -- Normal range between ( .00 and .80 ) Harper %: 6.5 % -- Normal range between ( 3.0 and 9.0 ) Baso %: 0.4 % -- Normal range between ( 0.0 and 2.0 ) Baso #: 0.04 K/uL -- Normal range between ( 0.00 and 0.20 ) RDW: 12.5 % -- Normal range between ( 11.6 and 14.4 ) Neut %: 65.7 % -- Normal range between ( 34.0 and 71.0 ) Neut #: 7.28 K/uL -- Normal range between ( 1.56 and 6.13 ) Lymph %: 26.6 % -- Normal range between ( 19.0 and 53.0 ) Lymph #: 2.95 K/uL -- Normal range between ( 1.18 and 3.74 ) MPV: 10.1 fL -- Normal range between ( 9.4 and 12.4 ) IG#: 0 x10(3)/uL IG%: 0 % -- Normal range between ( 0 and 1 ) General Chemistry 09/10/18 18:54:00 Creatinine Level: 0.98 mg/dL -- Normal range between ( 0.70 and 1.30 ) Sodium Level: 141 mmol/L -- Normal range between ( 136 and 145 ) Potassium Level: 3.8 mmol/L -- Normal range between ( 3.5 and 5.1 ) Chloride Level: 101 mmol/L -- Normal range between ( 98 and 107 ) Carbon Dioxide Level: 21 mmol/L -- Normal range between ( 21 and 32 ) Anion Gap: 23 -- Normal range between ( 9 and 20 ) Bilirubin Total: 1.0 mg/dL -- Normal range between ( 0.2 and 1.0 ) A/G Ratio: 1.5 -- Normal range between ( 1.1 and 2.5 ) ALT: 44 Units/Liter -- Normal range between ( 16 and 63 ) AST: 30 Units/Liter -- Normal range between ( 15 and 37 ) Globulin: 3.5 Gram/dL -- Normal range between ( 1.5 and 4.5 ) Alk Phos: 95 Units/Liter -- Normal range between ( 46 and 116 ) Bun/Creatinine: 9.184 Calcium Level: 10.3 mg/dL -- Normal range between ( 8.5 and 10.1 ) eGFR : 116 mL/min/1.73m2 eGFR NonAfrican: 96 mL/min/1.73m2 Glucose Level: 104 mg/dL -- Normal range between ( 74 and 106 ) Magnesium Level: 1.5 mg/dL -- Normal range between ( 1.8 and 2.4 ) Blood Urea Nitrogen: 9 mg/dL -- Normal range between ( 7 and 18 ) Protein Total: 8.8 Gram/dL -- Normal range between ( 6.4 and 8.2 ) Albumin Level: 5.3 Gram/dL -- Normal range between ( 3.4 and 5.0 ) Cardiac Specific Markers 09/10/18 18:54:00 Troponin I Ultra: <0.017 ng/mL -- Normal range between ( 0.000 and 0.056 ) Toxicology 09/10/18 19:42:00 UDS Amp: Negative UDS Dulce: Negative UDS Benzo: Negative UDS Todd: Negative UDS Meth: Negative UDS Methamp: Negative UDS Opi: Negative UDS PCP: Negative UDS TCA: Negative UDS THC: Positive Diagnostic Radiology 09/10/18 19:19:53 CR Chest 1 Vw Portable: CR Chest 1 Vw Portable Education Materials Palpitations A palpitation is the feeling that your heartbeat is irregular or is faster than normal. It may feel like your heart is fluttering or skipping a beat. Palpitations are usually not a serious problem. They may be caused by many things, including smoking, caffeine, alcohol, stress, and certain medicines. Although most causes of palpitations are not serious, palpitations can be a sign of a serious medical problem. In some cases, you may need further medical evaluation. Follow these instructions at home: Pay attention to any changes in your symptoms. Take these actions to help with your condition: ??? Avoid the following: ? Caffeinated coffee, tea, soft drinks, diet pills, and energy drinks. ? Chocolate. ? Alcohol. ??? Do not use any tobacco products, such as cigarettes, chewing tobacco, and e-cigarettes. If you need help quitting, ask your health care provider. ??? Try to reduce your stress and anxiety. Things that can help you relax include: ? Yoga. ? Meditation. ? Physical activity, such as swimming, jogging, or walking. ? Biofeedback. This is a method that helps you learn to use your mind to control things in your body, such as your heartbeats. ??? Get plenty of rest and sleep. ??? Take [id number]-[id number] and prescription medicines only as told by your health care provider. ??? Keep all follow-up visits as told by your health care provider. This is important. Contact a health care provider if: ??? You continue to have a fast or irregular heartbeat after 24 hours. ??? Your palpitations occur more often. Get help right away if: ??? You have chest pain or shortness of breath. ??? You have a severe headache. ??? You feel dizzy or you faint. This information is not intended to replace advice given to you by your health care provider. Make sure you discuss any questions you have with your health care provider. Document Released: 03/31/2001 Document Revised: 09/05/2016 Document Reviewed: 12/17/2015 CAL - [employer] Interactive Patient Education ?? 2019 [employer]. Emergency Awareness and Preventative Care STROKE is an EMERGENCY Every Minute Counts Act FAST and Check for these signs: FACE Does the face look uneven? ARM Does one arm drift down? SPEECH Does their speech sound strange? TIME Call at any sign of stroke Stroke Risk Factors Atrial Fibrillation (irregular heartbeat) Diabetes Family history of stroke Heart Disease Heavy alcohol use High Blood Pressure High Cholesterol Physical inactivity and obesity Smoking Cigarette Smoking The facts are clear, cigarette smoking will shorten your life. Smoking can cause many illnesses along the way. As a healthcare provider, we recommend that you stop smoking. Assistance with quitting is available by contacting 8-032-IWHFmobiDEOSNOW. This is a free resource providing counseling, support, and referral. Or you may contact your personal physician. National Suicide Prevention Lifeline: The National Suicide Prevention Lifeline is a national network of local crisis centers that provides free and confidential emotional support to people in suicidal crisis or emotional distress 24 hours a day, 7 days a week. Don't Wait! Stop a Heart Attack Before it Starts What is a heart attack? A heart attack is damage or to a part of the heart from severely decreased or lack of blood flow to the heart. Over time, arteries can become narrow from the buildup of fat and cholesterol, which is called plaque. The plaque can rupture causing a blood clot to form. When the blood clot forms, the artery can become severely narrowed or completely blocked, causing a heart attack. Heart attack is the leading cause of in the [place]. 85% of muscle damage occurs within the first 2 hours. Delay in the recognition of heart attack symptoms increases the chances of . Know the early symptoms of a heart attack: Nausea Feeling of fullness in chest Jaw Pain Pain that travels down one or both arms Fatigue/being tired Anxiety Back Pain Chest pressure, squeezing, or discomfort Shortness of breath Sweating, or a cold sweat Feeling of impending doom There are unusual signs of a heart attack, too! Women, the elderly, and diabetics may present with atypical symptoms: Fainting/dizziness Weakness Confusion Risk Factors for a Heart Attack Some heart disease risk factors, such as age and family history, cannot be changed. Others, like smoking and lack of exercise, can be changed. Smoking High Cholesterol High Blood Pressure Family History Obesity Age Gender (Males are at higher risk) Lack of Exercise Diabetes Diet Stress Excessive Alcohol Intake If you or someone you know is experiencing the signs and symptoms of a heart attack, DON???T DELAY. Call immediately and seek help. If someone collapses, perform CPR! Do not attempt to drive if you are having symptoms of heart attack. Hands-Only CPR Why Hands-Only CPR? Hands-Only CPR has been shown to be as effective as conventional CPR for cardiac arrests that occur outside of a hospital. Survival depends on immediately receiving CPR from someone nearby. How do you perform Hands-Only CPR? There are two easy steps: Call if you see a teen or adult collapse Push hard and fast in the center of the chest at a beat of 100 beats per minute. Save a life! 4 WAYS TO GET AHEAD OF SEPSIS SEPSIS is a MEDICAL EMERGENCY. Time matters! Infections put you and your family at risk for a life-threatening condition called sepsis. Sepsis is the body's extreme response to an infection. It is life-threatening, and without timely treatment, sepsis can rapidly lead to tissue damage, organ failure, and . Sepsis happens when an infection you already have-in your skin, lungs, urinary tract or somewhere else-triggers a chain reaction throughout your body. 1 PREVENT INFECTIONS Take good care of chronic conditions. Talk to your doctor about getting the recommended vaccines. 2 PRACTICE GOOD HYGIENE Wash your hands frequently. Keep cuts or open sores clean and covered until they are healed. 3 KNOW THE SYMPTOMS Confusion or disorientation Shortness of breath High heart rate Fever, shivering, or feeling very cold Extreme pain or discomfort Clammy or sweaty skin 4 ACT FAST Get medical care IMMEDIATELY if you suspect sepsis or if you have an infection that is not getting better or is getting worse. To learn more about sepsis and how to prevent infections, visit www.cdc.gov/sepsis. The examination and treatment you have received [...] that requires the expertise of a specialist. These physicians work in partnership with the hospital and have agreed to see referred patients in their office for further evaluation. KEEP IN MIND THAT THE SPECIALIST HAS HIS/HER OWN OFFICE POLICIES WHICH MAY REQUIRE PROPER INSURANCE OR PAYMENT UP FRONT BEFORE THE SPECIALIST WILL SEE YOU. It is your responsibility to call the specialist physician to make an appointment. We do not have the ability to refer patients to specialists/physicians that work with specific insurance companies. [...] necessary to obtain coverage for claims submitted. We will bill your insurance; however, you are responsible today for any co-pay amounts. You will receive a separate bill for any services you may have received including: emergency, radiology, or pathology physicians. Patient Name:JEVON ALONSO Tony I have received this information and was given the opportunity to ask questions. Patient/Agricultural Research Technician Name: Patient/Agricultural Research Technician Signature: Relationship to Patient: Clinician/Hospital Agricultural Research Technician Signature: Please Provide a Telephone Number Where You Can Be Reached: Is it Permissible To Leave a Message? Date: Electronically signed by Tiffanie, [facility] Conversion Book Cleaner Pete at 08/01/2022 4:53 PM CDT documented in this encounter Plan of Treatment Not on file documented as of this encounter Visit Diagnoses Not on filedocumented in this encounter
--- OUTSIDE RECORDS SUMMARY | 2025-03-09 09:19 | XMS_ITS | Encounter Summary ---
Author Organization [employer] ([place], [place], [place], [place], [place]) Address [address] [place] [address] Care Team Providers Care Production Helper Name Role Phone Unavailable Primary Care Provider Unavailabl e Encounter Details Date Type Department Care Team (Late st Contact Info) Description 04/18/2018 Transcribed Document [facility] [place] [facility] [place] [address] ProviderSherine MD [address] [place] [id number] Social History Tobacco Use Types Packs/Day Years Used Date Smoking Tobacco: Never Assessed Sex and Gender Information Value Date Recorded Sex Assigned at Not on file Legal Sex Male 5:59 PM CDT Gender Identity Not on file Sexual Orientation Not on file documented as of this encounter Miscellaneous Notes * Cerner Conversion Note - Sherine ProviderMD - 04/18/2018 8:54 PM BURN OUT TENDER LACE ED Assessment Entered On: 04/18/2018 21:41 EST Performed On: 04/18/2018 21:40 EST by Albert Soliz Rn ED Quick Look Assessment Level of Consciousness : Alert Orientation : Oriented x 4 Skin Temperature : Warm Skin Description : Dry Albert Soliz Rn - 04/18/2018 21:40 EST ED General-Functional Assess Information Obtained From : Patient Preferred Communication Mode : Verbal Communication Barrier : None Primary Language : Macanese Any Spiritual/Cultural Needs or Requests : No Currently in Unsafe Situation : No Albert Soliz Rn - 04/18/2018 21:40 EST Social Habits Smoking Status : Former smoker, quit more than 30 days ago Smokeless Tobacco Status : Never Desires Tobacco Cessation Calc : 0 Albert Soliz Rn - 04/18/2018 21:40 EST Social History (As Of: 04/18/2018 21:41:33 EST) Tobacco: Use in Last 12 Months: Snuff/Dip. Packs/Tins Daily: 1. (Last Updated: 12/17/2014 11:50:45 EDT by ROSANGELA HAZEL RN) Former smoker, quit more than 30 days ago Smoking Status. (Last Updated: 12/13/2017 12:33:32 EDT by NANNETTE HASKINS RN) Alcohol: Alcohol Use History No. (Last Updated: 12/17/2014 11:51:07 EDT by ROSANGELA HAZEL RN) Use in Last 12 Months: Yes. Alcohol Use Frequency Binges, Socially. (Last Updated: 02/24/2017 18:35:05 EST by Lyudmila Tang RN) Date/Time of Last Drink: DRANK APPROX 15 BEERS LAST NIGHT. (Last Updated: 02/24/2017 18:35:44 EST by Lyudmila Tang RN) Substance Abuse: Drug Use Hx: No. Use in Last 12 Months: No. (Last Updated: 02/24/2017 18:35:05 EST by Lyudmila Tang RN) Home/Environment: Lives with grand parents. (Last Updated: 12/17/2014 11:51:00 EDT by ROSANGELA HAZEL RN) EENT Assessment EENT Assessment WDL : Albert Morales Rn - 04/18/2018 21:40 EST Respiratory Respiratory Assessment WDL : Albert Morales Rn - 04/18/2018 21:40 EST Gastrointestinal ED Gastrointestinal Assessment WDL : MARTELL with exceptions Gastrointestinal Symptoms : Abdominal pain Albert Soliz Rn - 04/18/2018 21:40 EST Genitourinary Assessment, ED Genitourinary Assessment WDL : Albert Morales Rn - 04/18/2018 21:40 EST Musculoskeletal Musculoskeletal Assessment WDL : Albert Morales Rn - 04/18/2018 21:40 EST Integumentary Assessment Integumentary Assessment WDL : Albert Morales Rn - 04/18/2018 21:40 EST Neurologic ASMT, ED Neurologic Assessment WDL : Albert Morales Rn - 04/18/2018 21:40 EST Electronically signed by Tiffanie, [facility] Conversion Tread Cutter Cerner at 08/01/2022 5:14 PM CDT documented in this encounter Plan of Treatment Not on file documented as of this encounter Visit Diagnoses Not on filedocumented in this encounter
--- OUTSIDE RECORDS SUMMARY | 2025-03-09 09:19 | XMS_ITS | Encounter Summary ---
Author Organization [employer] ([place], [place], [place], [place], [place]) Address [address] [place] [address] Care Team Providers Care Insurance Coordinator Name Role Phone Unavailable Primary Care Provider Unavailabl e Encounter Details Date Type Department Care Team (Late st Contact Info) Description 09/10/2018 Transcribed Document [facility] [place] [facility] [place] [address] ProviderSherine MD [address] [place] [id number] Social History Tobacco Use Types Packs/Day Years Used Date Smoking Tobacco: Never Assessed Sex and Gender Information Value Date Recorded Sex Assigned at Not on file Legal Sex Male 5:59 PM CDT Gender Identity Not on file Sexual Orientation Not on file documented as of this encounter Miscellaneous Notes * Cerner Conversion Note - Historical ProviderMD - 09/10/2018 8:04 PM CDT Electronically signed by Tiffanie [facility] Conversion Fisheries Director Pete at 08/01/2022 5:18 PM CDT documented in this encounter Plan of Treatment Not on file documented as of this encounter Visit Diagnoses Not on filedocumented in this encounter
--- OUTSIDE RECORDS SUMMARY | 2025-03-09 09:19 | XMS_ITS | Encounter Summary ---
Author Organization [employer] ([place], [place], [place], [place], [place]) Address [address] [place] [address] Care Team Providers Care Epic Cadence Analyst Name Role Phone Unavailable Primary Care Provider Unavailabl e Encounter Details Date Type Department Care Team (Late st Contact Info) Description 05/12/2018 Transcribed Document [facility] [place] [facility] [place] [address] ProviderSherine MD [address] [place] [id number] Social History Tobacco Use Types Packs/Day Years Used Date Smoking Tobacco: Never Assessed Sex and Gender Information Value Date Recorded Sex Assigned at Not on file Legal Sex Male 5:59 PM CDT Gender Identity Not on file Sexual Orientation Not on file documented as of this encounter Miscellaneous Notes * Cerner Conversion Note - Sherine ProviderMD - 05/12/2018 11:56 PM VICE PRESIDENT SAFETY ED Triage Entered On: 05/13/2018 0:00 EST Performed On: 05/12/2018 23:58 EST by RACHAEL LUCERO RN ED Triage Across the Room Triage Date/Time : 05/12/2018 23:58 EST Chief Complaint : pt c/o palpitations and SOB x30 min BOOK PUBLISHER RACHAEL LUCERO RN - 05/12/2018 23:58 EST DCP GENERIC CODE Tracking Acuity : 3 - Urgent Tracking Group : [facility] ED RACHAEL Kirkpatrick RN - 05/12/2018 23:58 EST Mode of Arrival : Ambulatory Transported to ED by : Private vehicle To Room Via : Ambulate Accompanied By : Unaccompanied ED Vital Signs : Document Height & Weight : Document ED Allergies : Document ED Reason for Visit : Document Tetanus Immunization : Greater than 5 years RACHAEL LUCERO RN - 05/12/2018 23:58 EST Infectious Disease History Infectious Disease History : None, Other: H-pylori Fever/Chills Last 48 Hours : No Travel To [place] with Travel Advisories : No Travel Outside [place] Within Last 30 Days : No Contact With Traveler to Advisory Region : No Tuberculosis Symptoms : None RACHAEL LUCERO RN - 05/12/2018 23:58 EST Vital Signs ED Temperature Source : Oral Temperature Mode : Fahrenheit Temperature, Fahrenheit : 98.0 Deg F ED Pain : Yes Clinical Temperature, C : 36.7 Deg C Oxygen Therapy Mode : Room air Peripheral Pulse Rate : 98 bpm Respiratory Rate : 20 Breaths/Min Systolic Blood Pressure : 165 mmHg (HI) Diastolic Blood Pressure : 92 mmHg (HI) Oxygen Saturation : 98 % RACHAEL LUCERO RN - 05/12/2018 23:58 EST Allergy (As Of: 05/13/2018 00:00:51 EST) Allergies (Active) No Known Medication Allergies Estimated Onset Date: Unspecified ; Created By: ROSANGELA HAZEL RN; Reaction Status: Active ; Category: Drug ; Substance: No Known Medication Allergies ; Type: Allergy ; Updated By: ROSANGELA HAZEL RN; Reviewed Date: 05/13/2018 0:00 EST Diagnosis Control ED (As Of: 05/13/2018 00:00:51 EST) Problems(Active) HPV (human papilloma virus) anogenital infection (SNOMED CT :679496322 ) Name of Problem: HPV (human papilloma virus) anogenital infection ; Recorder: ROSANGELA HAZEL RN; Confirmation: Confirmed ; Classification: Medical ; Code: [id number] ; Contributor System: [employer] ; Last Updated: 12/17/2014 11:47 EDT ; Life Cycle Date: 12/17/2014 ; Life Cycle Status: Active ; Vocabulary: SNOMED CT Diagnoses(Active) Palpitations Date: 05/13/2018 ; Diagnosis Type: Reason For Visit ; Confirmation: Complaint of ; Clinical Dx: Palpitations ; Classification: Medical ; Clinical Service: Emergency medicine ; Code: PNED ; Probability: 0 ; Diagnosis Code: [id number] ED Height and Weight Height Source : Stated Height Entry Format : George Height, Feet : 5 ft(Converted to: 152 cm, 60 Inch) Height, Inches : 8 Inch(Converted to: 0 ft 8 Inch, 20.32 cm) Clinical Height : 172.72 cm Weight Source, ED : Critical estimated dosing weight Weight Entry Format : George Weight, Pounds : 194 lb Clinical Dosing Weight : 88.18 kg Body Surface Area (BSA) : 2.02 m2 Body Mass Index : 29.6 kg/m2 ([place]) [place] Body Weight (IBW) : 67.45 kg RACHAEL LUCERO RN - 05/12/2018 23:58 EST Pain Assessment Pain Assessment : Initial assessment Pain Scale Used : 0-10 Scale Location : Chest, midsternal Quality : Sharp Pain Radiation : No RACHAEL LUCERO RN - 05/12/2018 23:58 EST Pain Scale Intensity : 10 RACHAEL LUCERO RN - 05/12/2018 23:58 EST Image 4 - Images currently included in the form version of this document have not been included in the text rendition version of the form. documented in this encounter Plan of Treatment Not on file documented as of this encounter Visit Diagnoses Not on filedocumented in this encounter
--- OUTSIDE RECORDS SUMMARY | 2025-03-09 09:19 | XMS_ITS | Clinical Summary ---
Author Organization [employer] ([place], [place], [place], [place], [place]) Address [address] [place] [address] Care Team Providers Care Motel Operator Name Role Phone Unavailable Primary Care Provider Unavailabl e Allergies No known active allergies Medications No known medications Social History Tobacco Use Types Packs/Day Years Used Date Smoking Tobacco: Never Assessed Food Insecurity Answer Date Recorded Food run out past 12 months Not on file 04/17 Food did not last past 12 months Not on file 05/05/2023 Employment Answer Date Recorded Help finding and keeping a job Not on file 0 05/05/2023 Family and Community Support Answer Star e Recorded Help with Day to Day Activities Not on file 05/05/2023 Feeling Lonely or Isolated Not on file 05/05 Educational Attainment Answer Date Ernst rded Speak language other than Croatian at home Not on file 05/05/2023 Want help with school or training Not on file 05/05/2023 Substance Use Answer Date Recorded Used prescription meds for non-medical reasons N ot on file 05/05/2023 Used illegal drugs past 12 months Not on file 05/05/2023 Sex and Gender Information Value Date Recorded Sex Assigned at Not on file Legal Sex Male 5:59 PM CDT Gender Identity Not on file Sexual Orientation Not on file Last Filed Vital Signs Vital Sign Reading Time Taken Comments Blood Pressure 134/68 07/12/2022 9:24 AM EDT Pulse 78 07/12/2022 9:24 AM EDT Temperature 36.7 C (98 F) 07/12/2022 9:24 AM EDT Respiratory Rate 16 07/12/2022 9:24 AM EDT Oxygen Saturation 99% 07/12/2022 9:24 AM EDT Inhaled Oxygen Concentration - - Weight 77.1 kg (170 lb) 07/12/2022 7:35 AM EDT Height 170.2 cm (5' 7 ) 07/12/2022 7:35 AM EDT Body Mass Index 26.63 07/12/2022 7:35 AM EDT Plan of Treatment Health Maintenance Due Date Last Done Comments Depression Screening (12+) 2007 Tobacco Cessation Counseling and Screening (12+) 2007 HIV Screening 09/21/2010 Hepatitis C Screening 09/21/2013 COVID-19 VACCINE (3 - 2024-2 6 season) 2024 11/17/2020, 09/26/2020 Influenza Vaccine (#1) 2024 06/26/2019 DTAP/TDAP/TD VACCINES (3 - T d or Tdap) 10/25/2028 10/25/2018, 08/21/2016 Pneumococcal Vaccine: 0-49 Years Aged Out No longer eligible b ased on patient's age to complete this topic Insurance [facility]
--- OUTSIDE RECORDS SUMMARY | 2025-03-09 09:19 | XMS_ITS | Encounter Summary ---
Author Organization [employer] ([place], [place], [place], [place], [place]) Address [address] [place] [address] Care Team Providers Care Supervisor Line Department Name Role Phone Unavailable Primary Care Provider Unavailabl e Encounter Details Date Type Department Care Team (Late st Contact Info) Description 05/13/2018 Transcribed Document [facility] [place] Family Medicine [address] [place] [address] ProviderSherine MD [address] [place] [id number] Social History Tobacco Use Types Packs/Day Years Used Date Smoking Tobacco: Never Assessed Sex and Gender Information Value Date Recorded Sex Assigned at Not on file Legal Sex Male 5:59 PM CDT Gender Identity Not on file Sexual Orientation Not on file documented as of this encounter Miscellaneous Notes * Cerner Conversion Note - Sherine Martinez MD - 05/13/2018 1:22 AM BEEF CATTLE FARM 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 [facility] [address] [place] [address] PERSON INFORMATION Name JEVON ALONSO Age 22 Years 1995 Sex Male Language Portuguese PCP FLORENCE B[address]SON DR Marital Status Single Med Service Emergency Medicine Acct# Arrival 05/12/2018 23:56:00 Visit Reason Palpitations; PT STATES SOA AND CHEST PAIN Acuity 3 - Urgent LOS 000 01:26 Depart Date: 05/13/18 01:15 AM Address: [address] [facility] [address] Comment: PROVIDER INFORMATION Provider Role Assigned Unassigned CLAUDE LU MD-EMR ED Physician 05/12/2018 23:56:57 ALEXANRDEA CHILDERS, LODGE OFFICER Nurse 05/12/2018 23:59:24 DIAGNOSIS Anxiety PHYS DOC NOTES VITALS INFORMATION Vital Sign Triage Latest Temp Source Oral Oral Temp Mode Fahrenheit Fahrenheit Temp Fahrenheit 98.0 Deg F 98.0 Deg F Temp Celsius 02 Sat 98 % 98 % Respiratory Rate 20 Breaths/Min 20 Breaths/Min Peripheral Pulse Rate 98 bpm 98 bpm Apical Heart Rate Blood Pressure 165 mmHg / 92 mmHg 165 mmHg / 92 mmHg Comment: MEDICAL INFORMATION Allergy Info: No Known Medication Allergies Medications: Prescription Display hydrOXYzine (Vistaril 25 mg oral capsule) 1 Cap, Oral, Q6H, PRN as needed for anxiety, # 20 Cap, 0 Refill(s) Comment: DISCHARGE INFORMATION Discharge Disposition: Home Discharge Location: PATIENT EDUCATION INFORMATION Instructions: Generalized Anxiety Disorder, Adult Follow up: With: Address: When: Follow up with primary care provider Within 2 to 3 days Comment: documented in this encounter Plan of Treatment Not on file documented as of this encounter Visit Diagnoses Not on filedocumented in this encounter
--- OUTSIDE RECORDS SUMMARY | 2025-03-09 09:19 | XMS_ITS | Referral Summary ---
Author Organization [employer] ([place], [place], [place], [place], [place]) Address [address] [place] [address] Care Team Providers Care Chemist Helper Name Role Phone Unavailable Primary Care [...] Date Ernst rded Speak language other than Armenian at home Not on file 05/05/2023 Want [...] 07/12/2022 7:35 AM EDT Plan of Treatment Not on file Insurance [facility]
--- OUTSIDE RECORDS SUMMARY | 2025-03-09 09:19 | XMS_ITS | Encounter Summary ---
Author Organization [employer] ([place], [place], [place], [place], [place]) Address [address] [place] [address] Care Team Providers Care Quality Assurance Project Manager Name Role Phone Unavailable Primary Care Provider Unavailabl e Encounter Details Date Type Department Care Team (Late st Contact Info) Description 09/10/2018 Transcribed Document [facility] [place] [facility] [place] [address] ProviderSherine MD [address] [place] [id number] Social History Tobacco Use Types Packs/Day Years Used Date Smoking Tobacco: Never Assessed Sex and Gender Information Value Date Recorded Sex Assigned at Not on file Legal Sex Male 5:59 PM CDT Gender Identity Not on file Sexual Orientation Not on file documented as of this encounter Miscellaneous Notes * Cerner Conversion Note - Sherine ProviderMD - 09/10/2018 6:40 PM CDT ED Triage Entered On: 09/10/2018 18:49 EDT Performed On: 09/10/2018 18:43 EDT by EDUARDO FAUSTIN RN ED Triage Across the Room Triage Date/Time : 09/10/2018 18:43 EDT Chief Complaint : here with c/o heart beating hard in chest for past hour. c/o shortness of breath m nausea and diaphoresis. EDUARDO FAUSTIN RN - 09/10/2018 18:43 EDT DCP GENERIC CODE Tracking Acuity : 3 - Urgent Tracking Group : [facility] ED EDUARDO Dejesus RN - 09/10/2018 18:43 EDT Mode of Arrival : Ambulatory Transported to ED by : Private vehicle To Room Via : Wheelchair Accompanied By : Grandparent ED Vital Signs : Document Height & Weight : Document ED Allergies : Document ED Reason for Visit : Document Tetanus Immunization : Greater than 5 years EDUARDO FAUSTIN RN - 09/10/2018 18:43 EDT Infectious Disease History Infectious Disease History : None, Other: H-pylori Fever/Chills Last 48 Hours : No Travel To Regions with Travel Advisories : No Travel Outside [place] Within Last 30 Days : No Contact With Traveler to Advisory Region : No Tuberculosis Symptoms : None EDUARDO FAUSTIN RN - 09/10/2018 18:43 EDT Vital Signs ED Temperature Source : Oral Temperature Mode : Fahrenheit Temperature, Fahrenheit : 98.2 Deg F Clinical Temperature, C : 36.8 Deg C Oxygen Therapy Mode : Room air Peripheral Pulse Rate : 97 bpm Respiratory Rate : 20 Breaths/Min Blood Pressure Location : Arm, right upper Blood Pressure Source : Non-Invasive BP Device Systolic Blood Pressure : 165 mmHg (HI) Diastolic Blood Pressure : 99 mmHg (HI) Oxygen Saturation : 99 % EDUARDO FAUSTIN RN - 09/10/2018 18:43 EDT Allergy (As Of: 09/10/2018 18:49:11 EDT) Allergies (Active) No Known Medication Allergies Estimated Onset Date: Unspecified ; Created By: ROSANGELA HAZEL RN; Reaction Status: Active ; Category: Drug ; Substance: No Known Medication Allergies ; Type: Allergy ; Updated By: ROSANGELA HAZEL RN; Reviewed Date: 09/10/2018 18:45 EDT Diagnosis Control ED (As Of: 09/10/2018 18:49:11 EDT) Problems(Active) HPV (human papilloma virus) anogenital infection (SNOMED CT :[id number] ) Name of Problem: HPV (human papilloma virus) anogenital infection ; Recorder: ROSANGELA HAZEL RN; Confirmation: Confirmed ; Classification: Medical ; Code: [id number] ; Contributor System: Genius Pack ; Last Updated: 12/17/2014 11:47 EDT ; Life Cycle Date: 12/17/2014 ; Life Cycle Status: Active ; Vocabulary: SNOMED CT Diagnoses(Active) Rapid heart beat Date: 09/10/2018 ; Diagnosis Type: Reason For Visit ; Confirmation: Complaint of ; Clinical Dx: Rapid heart beat ; Classification: Medical ; Clinical Service: Emergency medicine ; Code: PNED ; Probability: 0 ; Diagnosis Code: [id number] ED Height and Weight Height Source : Stated Height Entry Format : Nicholas Height, Feet : 5 ft(Converted to: 152 cm, 60 Inch) Height, Inches : 7 Inch(Converted to: 0 ft 7 Inch, 17.78 cm) Clinical Height : 170.18 cm Weight Source, ED : Critical estimated dosing weight Weight Entry Format : Nicholas Weight, Pounds : 180 lb Clinical Dosing Weight : 81.82 kg Body Surface Area (BSA) : 1.94 m2 Body Mass Index : 28.3 kg/m2 (HI) [place] Body Weight (IBW) : 65.16 kg EDUARDO FAUSTIN RN - 09/10/2018 18:43 EDT Electronically signed by Елена Moreno Conversion Electric Freight Car Operator Georgiener at 08/01/2022 5:08 PM CDT documented in this encounter Plan of Treatment Not on file documented as of this encounter Visit Diagnoses Not on filedocumented in this encounter
--- OUTSIDE RECORDS SUMMARY | 2025-03-09 09:19 | XMS_ITS | Encounter Summary ---
Author Organization [employer] ([place], [place], [place], [place], [place]) Address [address] [place] [address] Care Team Providers Care Fire Fighting Equipment Specialist Name Role Phone Unavailable Primary Care Provider Unavailabl e Encounter Details Date Type Department Care Team (Late st Contact Info) Description 09/12/2018 Transcribed Document [facility] [place] Family Medicine [address] [place] [address] ProviderSherine MD [address] [place] [id number] Social History Tobacco Use Types Packs/Day Years Used Date Smoking Tobacco: Never Assessed Sex and Gender Information Value Date Recorded Sex Assigned at Not on file Legal Sex Male 5:59 PM CDT Gender Identity Not on file Sexual Orientation Not on file documented as of this encounter Miscellaneous Notes * Cerner Conversion Note - Historical ProviderMD - 09/12/2018 12:43 PM CDT CR Chest 1 Vw Portable Ordered: 09/10/2018 Modified Reason for Exam: palpitations 09/10/2018 20:12 09/12/2018 12:43 (Yamilet Molina PA) Reviewed by Provider, No further action required x1 Electronically signed by Елена Moreno Conversion [facility] Assistant Director Cerner at 08/01/2022 5:07 PM CDT documented in this encounter Plan of Treatment Not on file documented as of this encounter Visit Diagnoses Not on filedocumented in this encounter
--- OUTSIDE RECORDS SUMMARY | 2025-03-09 09:19 | XMS_ITS | Encounter Summary ---
Author Organization [employer] ([place], [place], [place], [place], [place]) Address [address] [place] [address] Care Team Providers Care Granite Fabricator Name Role Phone Unavailable Primary Care Provider Unavailabl e Encounter Details Date Type Department Care Team (Late st Contact Info) Description 04/18/2018 Transcribed Document [facility] [place] Family Medicine [facility] [place] [address] ProviderSherine MD [address] [place] [id number] Social History Tobacco Use Types Packs/Day Years Used Date Smoking Tobacco: Never Assessed Sex and Gender Information Value Date Recorded Sex Assigned at Not on file Legal Sex Male 5:59 PM CDT Gender Identity Not on file Sexual Orientation Not on file documented as of this encounter Miscellaneous Notes * Cerner Conversion Note - Sherine Martinez MD - 04/18/2018 10:08 PM IRON PILER Patient: JEVON ALONSO Age: 22 years Sex: Male : 1995 Associated Diagnoses: Abdominal pain; Paresthesia; Blood in stool Author: SIDDHARTH ARORA MD-EMR Basic Information Additional information: Chief Complaint from Nursing Triage Note : Chief Complaint 04/18/2018 20:58 EST Chief Complaint Pt has multiple complaints, states that he has left sided abdominal/flank pain with numbness x2-3 days, states he had bright red blood in stool x 1 today. and c/o being dizzy. Also c/o finger on left hand is swollen,hand feels numb, and arm hurts. (Modified) . History of Present Illness 22-year-old male here for multiple complaints. Patient says for the past 3 days he has been having pain to his left abdomen. He had a bowel movement with bright red blood in it earlier. No vomiting. He's been afebrile. He also complains of pain and numbness to his left upper and left lower extremity. He says that he can feel it, it hurts, and it is numb. Symptoms have persisted for the past 3 days. No recent injury. No blow to head. No headache or neck pain. He appears anxious.. Review of Systems Constitutional symptoms: No fever, no chills. Skin symptoms: Negative except as documented in HPI. Eye symptoms: Vision unchanged, No blurred vision, ENMT symptoms: Negative except as documented in HPI. Respiratory symptoms: Negative except as documented in HPI. Cardiovascular symptoms: Negative except as documented in HPI. Gastrointestinal symptoms: Abdominal pain, nausea, rectal bleeding, No vomiting, Genitourinary symptoms: No dysuria, no hematuria. Musculoskeletal symptoms: Negative except as documented in HPI. Neurologic symptoms: No headache, no altered level of consciousness. Additional review of systems information: All other systems reviewed and otherwise negative. Health Status Allergies: Allergic Reactions (All) No Known Medication Allergies. Medications: (Selected) Inpatient Medications Ordered Normal Saline Flush: 10 mL, IV Push, See Comment Sodium Chloride 0.9% bolus: 1,000 mL, 1,000 mL/Hr, IV Piggyback, 1-Time. Past Medical/ Family/ Social History Surgical history: No active procedure history items have been selected or recorded.. Family history: No family history items have been selected or recorded.. Social history: Social & Psychosocial Habits Alcohol 12/17/2014 Alcohol Use History, Social Habits No 02/24/2017 Alcohol Use in Last Twelve Months Yes Alcohol Use Frequency Binges, Socially 02/24/2017 Date/Time of Last Drink DRANK APPROX 15 BEERS LAST NIGHT Home/Environment 12/17/2014 Lives with: grand parents Substance Abuse 02/24/2017 Recreational Drug Use History No Recreational Drug Use Last 12 Months No Tobacco 12/17/2014 Tobacco Use Within Last Twelve Months Snuff/Dip Packs/Tins Daily 1 12/13/2017 Smoking Status Former smoker, quit more . Problem list: Active Problems (1) HPV (human papilloma virus) anogenital infection . Physical Examination Vital Signs Vital Signs/Vital Measures 04/18/2018 20:58 EST Temperature Source Oral Temperature Mode Fahrenheit Temperature, Fahrenheit 98.1 Deg F Clinical Temperature, C 36.7 Deg C Peripheral Pulse Rate 107 bpm HI Respiratory Rate 16 Breaths/Min Systolic Blood Pressure 142 mmHg HI Diastolic Blood Pressure 74 mmHg Oxygen Saturation 98 % Oxygen Therapy Mode Room air . Measurements 04/18/2018 20:58 EST Height Source Stated Height Entry Format Eliz Height/Length, GERMAN (ft) 5 ft Height/Length GERMAN 7 Inch CLINICALHEIGHT 170.18 cm Nadeau Body Weight 65.16 kg Weight Source, ED Critical estimated dosing weight Weight Entry Format [place] Weight Palestinian lb 200 lb CLINICALWEIGHT 90.91 kg Body Surface Area (BSA) 2.02 m2 Body Mass Index 31.4 kg/m2 HI . Oxygen Saturation 04/18/2018 20:58 EST Oxygen Saturation 98 % . General: Alert, anxious. Skin: Warm, dry, pink, intact. Head: Normocephalic, atraumatic. Neck: Trachea midline, no tenderness, full range of motion, No stiffness, Eye: Pupils are equal, round and reactive to light, extraocular movements are intact, normal conjunctiva. Cardiovascular: Regular rate and rhythm, No murmur, Normal peripheral perfusion, No edema. Respiratory: Lungs are clear to auscultation, respirations are non-labored, breath sounds are equal, Symmetrical chest wall expansion. Gastrointestinal: Soft, Tenderness: Right upper quadrant, left upper quadrant, left lower quadrant, Guarding: Negative, Rebound: Negative, Bowel sounds: Normal. Musculoskeletal: Normal ROM, normal strength, no tenderness, no swelling, no deformity. Neurological: Alert and oriented to person, place, time, and situation, CN II-XII intact, normal motor observed, normal speech observed, normal coordination observed. Psychiatric: Cooperative, appropriate mood & affect. Medical Decision Making Differential Diagnosis: Documents reviewed: Emergency department nurses' notes, emergency department records, prior records. Results review: Lab results : Lab Results 04/18/2018 23:34 EST Sodium Level 143 mmol/L Potassium Level 3.7 mmol/L Chloride Level 104 mmol/L Carbon Dioxide Level 25 mmol/L Anion Gap 18 Glucose Level 95 mg/dL Blood Urea Nitrogen 10 mg/dL Creatinine Level 1.26 mg/dL eGFR 87 mL/min/1.73m2 eGFR NonAfrican 72 mL/min/1.73m2 Bun/Creatinine 7.937 NA Calcium Level 9.0 mg/dL Protein Total 8.0 Gram/dL Albumin Level 4.2 Gram/dL Globulin 3.8 Gram/dL A/G Ratio 1.1 Bilirubin Total 0.1 mg/dL LOW Alk Phos 86 Units/Liter AST 28 Units/Liter ALT 47 Units/Liter 04/18/2018 22:17 EST Magnesium Level 2.0 mg/dL WBC 11.1 K/uL HI RBC 4.88 Million/uL Hgb 15.4 Gram/dL Hct 44.1 % MCV 90.4 fL MCH 31.6 pg MCHC 34.9 Gram/dL Platelet Count 294 K/uL MPV 9.8 fL RDW 12.6 % Neut % 56.6 % Neut # 6.30 K/uL HI Lymph % 34.2 % Lymph # 3.80 K/uL HI Lyman % 5.9 % Lyman # 0.65 K/uL Eos % 2.7 % Eos # 0.30 K/uL Baso % 0.4 % Baso # 0.04 K/uL Slide Review No IG# 0 x10(3)/uL IG% 0 % Alcohol 161 mg/dL NA 04/18/2018 22:00 EST UDS Amp Negative UDS Dulce Negative UDS Benzo Negative UDS Todd Negative UDS Meth Negative UDS Methamp Negative UDS Opi Negative UDS PCP Negative UDS TCA Negative UDS THC Negative 04/18/2018 21:41 EST Urine Type U CleanCatch Urine Color Yellow Urine Appearance Clear Urine Specific [place] 1.015 Urine pH Dipstick 7.0 Urine Leukocyte Esterase Negative Urine Nitrite Negative Urine Protein Dipstick Negative Urine Glucose Dipstick Negative Urine Ketones Dipstick Trace Urine Urobilinogen Dipstick 0.2 EU/dL Urine Bilirubin Dipstick Negative Urine Blood Dipstick Negative . Radiology results: Radiology Results (Last 48 hours) [id number] -- 04/18/2018 20:54 CT Head WO (04/18/2018 22:34) Result: STUDY: CT Head without contrastCLINICAL HISTORY: Left arm and leg numbness for 3 daysFINDINGS: Multiple contiguous transaxial slices through the head wereobtained without the intravenous administration of contrast with coronalreformatted images. This study was performed with techniques to keepradiation doses as low as reasonably achievable, (ALARA). Individualizeddose reduction techniques using automated exposure control or adjustmentof mA and/or kV according to the patient size were employed.The brain parenchyma is normal in morphology and attenuation withoutacute infarct, hemorrhage or mass effect. Ventricles are symmetric. There is mild mucosal thickening of the ethmoid sinus air cells. Nosinus air fluid level is seen. The calvarium is intact.IMPRESSION: No acute intracranial abnormality. CT Abdomen Pelvis W (04/18/2018 22:49) Result: STUDY: CT Abdomen And Pelvis with ContrastCLINICAL HISTORY: Left-sided pain.FINDINGS: Multiple contiguous transaxial slices through the abdomen andpelvis were obtained after the intravenous administration of contrastwith coronal reformatted images. This study was performed withtechniques to keep radiation doses as low as reasonably achievable,(ALARA). Individualized dose reduction techniques using automatedexposure control or adjustment of mA and/or kV according to the patientsize were employed.There is bilateral lower lobe atelectasis. The liver, gallbladder,spleen, pancreas, adrenal glands and kidneys are unremarkable.The bowel gas pattern is nonobstructive. The appendix appears normal.There is a subtle subcentimeter nodular focus in the bladder lumen rightof midline. This likely represents debris or blood clot in a patient ofthis age. However, recommend cystoscopy to exclude mass.IMPRESSION: Nodular focus within bladder lumen. Recommend cystoscopy . Reexamination/ Reevaluation Discussed results and findings with patient family. Pt tolerating po. Able to urinate. Will give bentyl for gi symptoms. Hgb normal. No clear etiology of reported paresthesia x 3 days. Normal function on exam. Will follow up with pcp for this. Has irregular bladder finding on ct. WIll give info for urology. Discussed follow up and return precautions Impression and Plan Diagnosis Abdominal pain - Discharge, Medical Paresthesia - Discharge, Medical Blood in stool - Discharge, Medical Plan Condition: Improved. Disposition: Discharged Admit/Transfer/Discharge: Discharge (Order): Start: 04/19/2018 0:22 EST, Discharge to: Home. Prescriptions: Prescription Rn Gynecology Pharmacy: Bentyl 20 mg oral tablet (Prescribe): 1 Tab, Oral, QID, for 7 Day(s), 28 Tab, 0 Refill(s). Patient was given the following educational materials: Paresthesia, Lower Gastrointestinal Bleeding, Abdominal Pain, Adult, Abdominal Pain, Adult, Lower Gastrointestinal Bleeding, Paresthesia. Follow up with: [facility] If you need assistance establishing primary care, or if you have any questions, please contact us at [phone].; Follow up with primary care provider Within 2 to 3 days; September Within 2 to 3 days, September Within 2 to 3 days; Follow up with primary care provider Within 2 to 3 days; [facility] If you need assistance establishing primary care, or if you have any questions, please contact us at [phone].; NO PRIM DR BENSON Within 2 to 3 days; IVONNE HOUSER Within 2 to 3 days. Counseled: Patient, Family, Regarding diagnosis, Regarding diagnostic results, Regarding treatment plan, Regarding prescription, Patient indicated understanding of instructions. Addendum Pt left prior to being informed of bladder finding on ct. Called at listed phone number [phone] and informed. Instructed to follow up with urology. Provided information for Dr Houser and instructed to call office in AM documented in this encounter Plan of Treatment Not on file documented as of this encounter Visit Diagnoses Not on filedocumented in this encounter
--- OUTSIDE RECORDS SUMMARY | 2025-03-09 09:19 | XMS_ITS | Encounter Summary ---
Author Organization [facility] Address [address] [place] [address] Care Team Providers Care Assistant Maintenance Manager Name Role Phone Levi Turner APRN Primary Care Provide r Encounter Details Date Type Department Care Team (Late st Contact Info) Description 05/06/2013 Conversion Encounter [facility] HISTORICAL CONV [address] [place] [address] Interface, See Report Social History [...] PM EST Clinical Report - Physicians/Mid Levels [facility] Emergency Department [address] [place], [place] [id number] 05/06/2013 Patient: JEVON ALONSO Sex: M : [...] 11/20/2011 exam. FAX TO: A E: 05/07/2013 Information Services Vice PresidentDimple [employer] Releasing Gamaliel [employer] Released Date Time- [...] 11/20/2011 exam. FAX TO: Livia E: 05/07/2013 Information Services Vice Presidentkaren [employer] Releasing Gamaliel [employer] Released Date Time- 05/07/132211 Markus Messina MD [facility] DIAGNOSTIC IMAGING ORDER MICHELLE Final Result documented in this encounter Visit Diagnoses Not on filedocumented in this encounter Care Teams Assistant Maintenance Manager Relationship Specialty Start Date End Date Levi Turner APRN PCP - General Internal Medicine 06/26/19 documented as of this encounter
--- OUTSIDE RECORDS SUMMARY | 2025-03-09 09:19 | XMS_ITS | Encounter Summary ---
Author Organization [employer] ([place], [place], [place], [place], [place]) Address [address] [place] [address] Care Team Providers Care Administrative Fellow Name Role Phone Unavailable Primary Care Provider Unavailabl e Encounter Details Date Type Department Care Team (Late st Contact Info) Description 05/12/2018 Transcribed Document [facility] [place] Family Medicine [address] [place] [address] ProviderSherine MD Formerly [facility] [place] [address] Social History Tobacco Use Types Packs/Day Years Used Date Smoking Tobacco: Never Assessed Sex and Gender Information Value Date Recorded Sex Assigned at Not on file Legal Sex Male 5:59 PM CDT Gender Identity Not on file Sexual Orientation Not on file documented as of this encounter Miscellaneous Notes * Cerner Conversion Note - Sherine ProviderMD - 05/12/2018 11:56 PM SWIMMING PROFESSOR ED Assessment Entered On: 05/13/2018 0:01 EST Performed On: 05/13/2018 0:00 EST by RACHAEL LUCERO RN ED Quick Look Assessment Level of Consciousness : Alert Affect/Behavior : Calm, Cooperative Orientation : Oriented x 4 RACHAEL LUCERO RN - 05/13/2018 0:00 EST ED General-Functional Assess Preferred Communication Mode : Verbal Communication Barrier : None Primary Language : Citizen Of [place] Any Spiritual/Cultural Needs or Requests : No Currently in Unsafe Situation : No RACHAEL LUCERO RN - 05/13/2018 0:00 EST Social Habits Smoking Status : Never (less than 100 in lifetime; none in last 30 days) Smokeless Tobacco Status : Former smokeless tobacco user, quit more than 30 days ago Desires Tobacco Cessation Calc : 0 RACHAEL LUCERO RN - 05/13/2018 0:00 EST Social History (As Of: 05/13/2018 00:01:37 EST) Tobacco: Use in Last 12 Months: [...] 12/17/2014 11:51:00 EDT by ROSANGELA HAZEL RN) Cardiovascular ASMT, ED Cardiovascular Assessment WDL : WDL with exceptions Cardiovascular Symptoms : Chest discomfort at rest, Palpitations at rest RACHAEL LUCERO RN - 05/13/2018 0:00 EST Pulses Grid Brachial Pulse, Left : 2+ normal Brachial Pulse, Right : 2+ normal Radial Pulse, Left : 2+ normal Radial Pulse, Right : 2+ normal RACHAEL LUCERO RN - 05/13/2018 0:00 EST Respiratory Respiratory Assessment WDL : WDL RACHAEL LUCERO RN - 05/13/2018 0:00 EST documented in this encounter Plan of Treatment Not on file documented as of this encounter Visit Diagnoses Not on filedocumented in this encounter
--- OUTSIDE RECORDS SUMMARY | 2025-03-09 09:19 | XMS_ITS | Encounter Summary ---
Author Organization [employer] ([place], [place], [place], [place], [place]) Address [address] [place] [address] Care Team Providers Care Eeo Officer Name Role Phone Unavailable Primary Care Provider Unavailabl e Encounter Details Date Type Department Care Team (Late st Contact Info) Description 09/10/2018 Transcribed Document [facility] [place] [facility] [place] [address] ProviderSherine MD [address] [place] [id number] Social History Tobacco Use Types Packs/Day Years Used Date Smoking Tobacco: Never Assessed Sex and Gender Information Value Date Recorded Sex Assigned at Not on file Legal Sex Male 5:59 PM CDT Gender Identity Not on file Sexual Orientation Not on file documented as of this encounter Miscellaneous Notes * Cerner Conversion Note - Sherine ProviderMD - 09/10/2018 8:27 PM CDT ED Discharge Entered On: 09/10/2018 20:29 EDT Performed On: 09/10/2018 20:27 EDT by Jarad Slaughter REGISTERED_NURSE_EMERGENCY_[facility] Discharge Process Patient Disposition : Discharge Personal Belongings With Patient : Yes Patient Education Completed : Yes Teaching Evaluation : Verbalizes understanding Education Comment : f/up with MD, med prescribed, information to read in d/c papers IV Discontinued : Yes Nursing Documentation Completed : Yes Jarad Slaughter REGISTERED_NURSE_EMERGENCY_[facility] - 09/10/2018 20:27 EDT ED Discharge Vital Signs Peripheral Pulse Rate : 84 bpm Respiratory Rate : 24 Breaths/Min (HI) Systolic Blood Pressure : 136 mmHg Diastolic Blood Pressure : 75 mmHg Oxygen Saturation : 98 % Oxygen Therapy Mode : Room air Jarad Slaughter REGISTERED_NURSE_EMERGENCY_[facility] - 09/10/2018 20:27 EDT ED Discharge Discharge To : Home with ambulatory/outpatient follow-up Mode Of Departure : Ambulatory Accompanied By : Grandparent Discharge Instructions Reviewed With, Opportunity For Questions Given : Patient, Grandparent Prescriptions Given to Patient : Yes Number of Prescriptions Given : 1 Jarad Slaughter REGISTERED_NURSE_EMERGENCY_[facility] - 09/10/2018 20:27 EDT Electronically signed by [facility] Conversion Sap Bw Consultant Cerner at 08/01/2022 4:56 PM CDT documented in this encounter Plan of Treatment Not on file documented as of this encounter Visit Diagnoses Not on filedocumented in this encounter
--- OUTSIDE RECORDS SUMMARY | 2025-03-09 09:19 | XMS_ITS | Encounter Summary ---
Author Organization [employer] ([place], [place], [place], [place], [place]) Address [address] [place] [address] Care Team Providers Care Field Supervisor Name Role Phone Unavailable Primary Care Provider Unavailabl e Encounter Details Date Type Department Care Team (Late st Contact Info) Description 04/18/2018 Transcribed Document [facility] [place] [facility] [place] [address] ProviderSherine MD [address] [place] [id number] Social History Tobacco Use Types Packs/Day Years Used Date Smoking Tobacco: Never Assessed Sex and Gender Information Value Date Recorded Sex Assigned at Not on file Legal Sex Male 5:59 PM CDT Gender Identity Not on file Sexual Orientation Not on file documented as of this encounter Miscellaneous Notes * Cerner Conversion Note - Sherine ProviderMD - 04/18/2018 8:54 PM BOAT DRIVER ED Triage Entered On: 04/18/2018 21:06 EST Performed On: 04/18/2018 20:58 EST by Tomeka Sales RN ED Triage Across the Room Triage Date/Time : 04/18/2018 20:58 EST Tomeka Sales RN - 04/18/2018 20:58 EST Chief Complaint : Pt has multiple complaints, states that he has left sided abdominal/flank pain with numbness x2-3 days, states he had bright red blood in stool x 1 today. and c/o being dizzy. Also c/o finger on left hand is swollen,hand feels numb, and arm hurts. Tomeka Sales RN - 04/18/2018 21:07 EST Tomeka Sales RN - 04/18/2018 21:07 EST DCP GENERIC CODE Tracking Group : [facility] ED [place] Tracking Acuity : 3 - Urgent Tomeka Sales RN - 04/18/2018 20:58 EST Mode of Arrival : Ambulatory Transported to ED by : Private vehicle To Room Via : Ambulate Accompanied By : Grandparent ED Vital Signs : Document Height & Weight : Document ED Allergies : Document ED Reason for Visit : Document Tetanus Immunization : Greater than 5 years Tomeka Sales RN - 04/18/2018 20:58 EST Infectious Disease History Infectious Disease History : None, Other: H-pylori Fever/Chills Last 48 Hours : No Travel To Regions with Travel Advisories : No Travel Outside [place] Within Last 30 Days : No Contact With Traveler to Advisory Region : No Tuberculosis Symptoms : None Tomeka Sales RN - 04/18/2018 20:58 EST Vital Signs ED Temperature Source : Oral Temperature Mode : Fahrenheit Temperature, Fahrenheit : 98.1 Deg F ED Pain : Yes Clinical Temperature, C : 36.7 Deg C Oxygen Therapy Mode : Room air Peripheral Pulse Rate : 107 bpm (HI) Respiratory Rate : 16 Breaths/Min Systolic Blood Pressure : 142 mmHg (HI) Diastolic Blood Pressure : 74 mmHg Oxygen Saturation : 98 % Tomeka Sales RN - 04/18/2018 20:58 EST Allergy (As Of: 04/18/2018 21:06:32 EST) Allergies (Active) No Known Medication Allergies Estimated Onset Date: Unspecified ; Created By: ROSANGELA HAZEL RN; Reaction Status: Active ; Category: Drug ; Substance: No Known Medication Allergies ; Type: Allergy ; Updated By: ROSANGELA HAZEL RN; Reviewed Date: 04/18/2018 21:03 EST Diagnosis Control ED (As Of: 04/18/2018 21:06:32 EST) Problems(Active) HPV (human papilloma virus) anogenital infection (SNOMED CT :991160289 ) Name of Problem: HPV (human papilloma virus) anogenital infection ; Recorder: ROSANGELA HAZEL RN; Confirmation: Confirmed ; Classification: Medical ; Code: [id number] ; Contributor System: Smartaxi ; Last Updated: 12/17/2014 11:47 EDT ; Life Cycle Date: 12/17/2014 ; Life Cycle Status: Active ; Vocabulary: SNOMED CT Diagnoses(Active) Abdominal pain Date: 04/18/2018 ; Diagnosis Type: Reason For Visit ; Confirmation: Complaint of ; Clinical Dx: Abdominal pain ; Classification: Medical ; Clinical Service: Emergency medicine ; Code: PNED ; Probability: 0 ; Diagnosis Code: [id number] Flank pain Date: 04/18/2018 ; Diagnosis Type: Reason For Visit ; Confirmation: Complaint of ; Clinical Dx: Flank pain ; Classification: Medical ; Clinical Service: Emergency medicine ; Code: PNED ; Probability: 0 ; Diagnosis Code: [id number] ED Height and Weight Height Source : Stated Height Entry Format : Marion Height, Feet : 5 ft(Converted to: 152 cm, 60 Inch) Height, Inches : 7 Inch(Converted to: 0 ft 7 Inch, 17.78 cm) Clinical Height : 170.18 cm Weight Source, ED : Critical estimated dosing weight Weight Entry Format : Marion Weight, Pounds : 200 lb Clinical Dosing Weight : 90.91 kg Body Surface Area (BSA) : 2.02 m2 Body Mass Index : 31.4 kg/m2 (HI) Seibert Body Weight (IBW) : 65.16 kg Tomeka Sales RN - 04/18/2018 20:58 EST Pain Assessment Pain Assessment : Initial assessment Pain Scale Used : 0-10 Scale Tomeka Sales RN - 04/18/2018 20:58 EST Pain Scale Intensity : 8 Tomeka Sales RN - 04/18/2018 20:58 EST Image 4 - Images currently included in the form version of this document have not been included in the text rendition version of the form. Electronically signed by Елена Moreno Conversion Printed Circuit Boards Inspector Cerner at 08/01/2022 5:01 PM CDT documented in this encounter Plan of Treatment Not on file documented as of this encounter Visit Diagnoses Not on filedocumented in this encounter
--- OUTSIDE RECORDS SUMMARY | 2025-03-09 09:19 | XMS_ITS | Encounter Summary ---
Author Organization [employer] ([place], [place], [place], [place], [place]) Address [address] [place] [address] Care Team Providers Care Data Collection Technician Name Role Phone Unavailable Primary Care Provider Unavailabl e Encounter Details Date Type Department Care Team (Late st Contact Info) Description 04/19/2018 Transcribed Document [facility] [place] Family Medicine [facility] [place] [place] [address] ProviderSherine MD [address] [place] [address] Social History Tobacco Use Types Packs/Day Years Used Date Smoking Tobacco: Never Assessed Sex and Gender Information Value Date Recorded Sex Assigned at Not on file Legal Sex Male 5:59 PM CDT Gender Identity Not on file Sexual Orientation Not on file documented as of this encounter Miscellaneous Notes * Cerner Conversion Note - Sherine Martinez MD - 04/19/2018 12:28 AM CARPET YARN WINDER OPERATOR [place] [facility] [address] [place] [address] PERSON INFORMATION Name JEVON ALONSO Age 22 Years 1995 Sex Male Language Italian PCP [address] Marital Status Single Med Service Emergency Medicine Acct# Arrival 04/18/2018 20:54:00 Visit Reason Flank pain; Abdominal pain; BLOODY STOOL AND LT SIDE PAIN Acuity 3 - Urgent LOS 000 03:34 Depart Date: 04/19/18 00:27 AM Address: [address] [facility] [id number] Comment: PROVIDER INFORMATION Provider Role Assigned Unassigned SIDDHARTH ARORA MD-EMR ED Physician 04/18/2018 21:37:31 Albert Soliz upholstered goods crafter Nurse 04/18/2018 21:40:16 DIAGNOSIS Abdominal pain; Blood in stool; Paresthesia PHYS DOC NOTES VITALS INFORMATION Vital Sign Triage Latest Temp Source Oral Oral Temp Mode Fahrenheit Fahrenheit Temp Fahrenheit 98.1 Deg F 98.1 Deg F Temp Celsius 02 Sat 98 % 98 % Respiratory Rate 16 Breaths/Min 16 Breaths/Min Peripheral Pulse Rate 107 bpm 107 bpm Apical Heart Rate Blood Pressure 142 mmHg / 74 mmHg 142 mmHg / 74 mmHg Comment: MEDICAL INFORMATION Allergy Info: No Known Medication Allergies Medications: Prescription Display dicyclomine (Bentyl 20 mg oral tablet) 1 Tab, Oral, Tab, QID, # 28 Tab, 0 Refill(s) Comment: DISCHARGE INFORMATION Discharge Disposition: Home Discharge Location: PATIENT EDUCATION INFORMATION Instructions: Abdominal Pain, Adult; Lower Gastrointestinal Bleeding; Paresthesia Follow up: With: Address: When: September [address] [place] [address], [place] [address] [facility] () Within 2 to 3 days With: Address: When: Follow up with primary care provider Within 2 to 3 days With: Address: When: [facility] Comments: If you need assistance establishing primary care, or if you have any questions, please contact us at [phone]. Comment: Electronically signed by Елена Moreno Conversion Biofuels Processing Technician Cerner at 08/01/2022 5:19 PM CDT documented in this encounter Plan of Treatment Not on file documented as of this encounter Visit Diagnoses Not on filedocumented in this encounter
--- OUTSIDE RECORDS SUMMARY | 2025-03-09 09:19 | XMS_ITS | Clinical Summary ---
Author Organization [facility] Address [address] [place] [address] Care Team Providers Care Campaign Marketing Specialist Name Role Phone Levi Turner JESICA Primary [...] ANNUAL PHYSICAL 06/26/2019 HEPATITIS C SCREENING 06/26/2019 INFLUENZA VACCINE 11/15/2024 06/26/2019, 06/26/2019 TDAP/TD VACCINES (3 - Td or Tdap) 10/25/2028 10/25/2018, 08/21/2016 Pneumococcal Vaccine 0-49 Aged Out No longer eligible based on patient's age to complete this topic Insurance [address] PPO Care Teams Campaign Marketing Specialist Relationship Specialty Start Date End Date Levi Turner APRN PCP - General Internal Medicine 06/26/19
--- OUTSIDE RECORDS SUMMARY | 2025-03-09 09:19 | XMS_ITS | Encounter Summary ---
Author Organization [employer] ([place], [place], [place], [place], [place]) Address [address] [place] [address] Care Team Providers Care County Assessor Name Role Phone Unavailable Primary Care Provider Unavailabl e Encounter Details Date Type Department Care Team (Late st Contact Info) Description 05/13/2018 Transcribed Document [facility] [place] [facility] [place] [address] ProviderSherine MD [address] [place] [id number] Social History Tobacco Use Types Packs/Day Years Used Date Smoking Tobacco: Never Assessed Sex and Gender Information Value Date Recorded Sex Assigned at Not on file Legal Sex Male 5:59 PM CDT Gender Identity Not on file Sexual Orientation Not on file documented as of this encounter Miscellaneous Notes * Cerner Conversion Note - Sherine Martinez MD - 05/13/2018 12:08 AM RECREATIONAL VEHICLE REPAIRER Patient: JEVON ALONSO Age: 22 years Sex: Male : 1995 Associated Diagnoses: Anxiety Author: CLAUDE LU MD-EMR Basic Information Additional information: Chief Complaint from Nursing Triage Note : Chief Complaint 05/12/2018 23:58 EST Chief Complaint 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 History of Present Illness Patient presents with a 30 minute history of reported palpitations, shortness of breath, and bilateral anterior chest pain. He states he has a history of this in the past and was diagnosed with anxiety. No fever no chills. No productive cough. The chest pain is reproducible and is also increased with movement and deep breath. No calf pain or swelling. No trauma Review of Systems Constitutional symptoms: Negative except as documented in HPI. Skin symptoms: Negative except as documented in HPI. Eye symptoms: Negative except as documented in HPI. ENMT symptoms: Negative except as documented in HPI. Respiratory symptoms: Negative except as documented in HPI. Cardiovascular symptoms: Negative except as documented in HPI. Gastrointestinal symptoms: Negative except as documented in HPI. Genitourinary symptoms: Negative except as documented in HPI. Musculoskeletal symptoms: Negative except as documented in HPI. Neurologic symptoms: Negative except as documented in HPI. Psychiatric symptoms: Negative except as documented in HPI. Endocrine symptoms: Negative except as documented in HPI. Hematologic/Lymphatic symptoms: Negative except as documented in HPI. Allergy/immunologic symptoms: Negative except as documented in HPI. Additional review of systems information: All other systems reviewed and otherwise negative, All systems reviewed as documented in chart. Health Status Allergies: Allergic Reactions (Selected) No Known Medication Allergies. Medications: (Selected) Inpatient Medications Ordered Vistaril: 50 mg, Oral, 1-Time Prescriptions Prescribed Bentyl 20 mg oral tablet: 1 Tab, Oral, QID, for 7 Day(s), 28 Tab, 0 Refill(s). Past Medical/ Family/ Social History Medical history see problem list . Surgical history: No active procedure history items [...] Physical Examination Vital Signs Vital Signs/Vital Measures 05/12/2018 23:58 EST Temperature Source Oral Temperature Mode Fahrenheit Temperature, Fahrenheit 98.0 Deg F Clinical Temperature, C 36.7 Deg C Peripheral Pulse Rate 98 bpm Respiratory Rate 20 Breaths/Min Systolic Blood Pressure 165 mmHg HI Diastolic Blood Pressure 92 mmHg HI Oxygen Saturation 98 % Oxygen Therapy Mode Room air . Measurements 05/12/2018 23:58 EST Height Source Stated Height Entry Format Eliz Height/Length, MALAGASY (ft) 5 ft Height/Length MALAGASY 8 Inch CLINICALHEIGHT 172.72 cm [place] Body Weight 67.45 kg Weight Source, ED Critical estimated dosing weight Weight Entry Format Eliz Weight Croatian lb 194 lb CLINICALWEIGHT 88.18 kg Body Surface Area (BSA) 2.02 m2 Body Mass Index 29.6 kg/m2 HI . Oxygen Saturation 05/12/2018 23:58 EST Oxygen Saturation 98 % . General: Patient is anxious but is in no respiratory distress. Skin: Warm, dry. Head: Normocephalic, atraumatic. Neck: Supple. Eye: Pupils are equal, round and reactive to light, extraocular movements are intact. Ears, nose, mouth and throat: Oral mucosa moist. Cardiovascular: Regular rate and rhythm, No murmur, Normal peripheral perfusion, No edema. Respiratory: Lungs are clear to auscultation, respirations are non-labored. Gastrointestinal: Soft, Nontender, Non distended, Normal bowel sounds. Back: Nontender, Normal range of motion. Musculoskeletal: Normal ROM, normal strength. Neurological: Alert and oriented to person, place, time, and situation, No focal neurological deficit observed. Lymphatics: No lymphadenopathy. Psychiatric: Cooperative. Medical Decision Making Electrocardiogram: Time 05/13/2018 00:01:00, rate 108, Substance tachycardia with a rate of 108. No acute ischemic changes are noted. Results review: Lab results : Lab Results 05/13/2018 0:08 EST Urine Type U CleanCatch Urine Color Yellow Urine Appearance Clear Urine Specific [place] 1.020 Urine pH Dipstick 8.0 Urine Leukocyte Esterase Negative Urine Nitrite Negative Urine Protein Dipstick 30 Urine Glucose Dipstick Negative Urine Ketones Dipstick Negative Urine Urobilinogen Dipstick 0.2 EU/dL Urine Bilirubin Dipstick Negative Urine Blood Dipstick Negative Ur Mucous Trace Ur Squamous Epithelial Cells 0-2 /HPF UDS Amp Negative UDS Dulce Negative UDS Benzo Negative UDS Todd Negative UDS Meth Negative UDS Methamp Negative UDS Opi Negative UDS PCP Negative UDS TCA Negative UDS THC Positive . Chest X-Ray: No acute disease process, interpretation by Emergency Physician. Impression and Plan Diagnosis Anxiety - Discharge, Emergency medicine, Medical Plan Condition: Stable. Prescriptions: Prescription [facility]: Dannyl 25 mg oral capsule (Prescribe): 1 Cap, Oral, Q6H, PRN: as needed for anxiety, 20 Cap, 0 Refill(s). Counseled: Patient. Orders: Launch Orders Admit/Transfer/Discharge: Discharge (Order): Start: 05/13/2018 1:12 EST, Discharge to: Home. Electronically signed by Tiffanie [facility] Conversion Ground Operations Supervisor Cerner at 08/01/2022 5:01 PM CDT documented in this encounter Plan of Treatment Not on file documented as of this encounter Visit Diagnoses Not on filedocumented in this encounter
--- OUTSIDE RECORDS SUMMARY | 2025-03-09 09:19 | XMS_ITS | Encounter Summary ---
Author Organization [facility] [employer] ([place], [place], [place], [place], [place]) Address [address] [place] [address] Care Team Providers Care User Experience Designer Name Role Phone Unavailable Primary Care Provider Unavailabl e Encounter Details Date Type Department Care Team (Late st Contact Info) Description 04/19/2018 Transcribed Document [facility] [place] [facility] [place] [address] ProviderSherine MD [address] [place] [id number] Social History Tobacco Use Types Packs/Day Years Used Date Smoking Tobacco: Never Assessed Sex and Gender Information Value Date Recorded Sex Assigned at Not on file Legal Sex Male 5:59 PM CDT Gender Identity Not on file Sexual Orientation Not on file documented as of this encounter Miscellaneous Notes * Cerner Conversion Note - Sherine ProviderMD - 04/19/2018 12:27 AM DIORAMIST ED Discharge Entered On: 04/19/2018 0:27 EST Performed On: 04/19/2018 0:27 EST by Albert Soliz Actimize Architect Process Patient Disposition : Discharge Personal Belongings With Patient : Yes Patient Education Completed : Yes Teaching Evaluation : Verbalizes understanding IV Discontinued : Yes Nursing Documentation Completed : Yes Albert Soliz Rn - 04/19/2018 0:27 EST ED Discharge Discharge To : Home without planned follow-up Mode Of Departure : Ambulatory Accompanied By : Mother Discharge Instructions Reviewed With, Opportunity For Questions Given : Patient, Mother Prescriptions Given to Patient : Yes Medications Given to Patient : Yes Albert Soliz Rn - 04/19/2018 0:27 EST Electronically signed by Tiffanie [facility] Conversion Evening Anchor Pete at 08/01/2022 4:58 PM CDT documented in this encounter Plan of Treatment Not on file documented as of this encounter Visit Diagnoses Not on filedocumented in this encounter
--- OUTSIDE RECORDS SUMMARY | 2025-03-09 09:19 | XMS_ITS | Encounter Summary ---
Author Organization [employer] ([place], [place], [place], [place], [place]) Address [address] [place] [address] Care Team Providers Care Hog Tender Name Role Phone Unavailable Primary Care Provider Unavailabl e Encounter Details Date Type Department Care Team (Late st Contact Info) Description 09/10/2018 Transcribed Document [facility] [place] Family Medicine [place] [address] ProviderSherine MD [address] [place] [id number] Social History Tobacco Use Types Packs/Day Years Used Date Smoking Tobacco: Never Assessed Sex and Gender Information Value Date Recorded Sex Assigned at Not on file Legal Sex Male 5:59 PM CDT Gender Identity Not on file Sexual Orientation Not on file documented as of this encounter Miscellaneous Notes * Cerner Conversion Note - Sherine Martinez MD - 09/10/2018 7:03 PM CDT Patient: JEVON ALONSO Age: 22 years Sex: Male : 1995 Associated Diagnoses: Palpitations Author: CLAUDE LU MD-EMR Basic Information Additional information: Chief Complaint from Nursing Triage Note : Chief Complaint 09/10/2018 18:43 EDT Chief Complaint here with c/o heart beating hard in chest for past hour. c/o shortness of breath m nausea and diaphoresis. . History of Present Illness The patient is a 22-year-old white male. He presents stating that his heart has been beating hard for the last 1 hour. He complains of some nausea and diaphoresis. He denies any ingestion. No fever no chills. No chronic medical illnesses. No trauma. No shortness of breath at this time Review of Systems Constitutional symptoms: Negative except [...] Normal Saline Flush: 10 mL, IV Push, 1-Time Normal Saline Flush: 10 mL, IV Push, See Comment, PRN: IV Use Sodium Chloride 0.9% intravenous solution 1,000 mL: 1,000 mL/Hr, IntraVENous Zofran: 4 mg, IV Push, 1-Time Prescriptions Prescribed Bentyl 20 mg oral tablet: 1 Tab, Oral, QID, for 7 Day(s), 28 Tab, 0 Refill(s) Vistaril 25 mg oral capsule: 1 Cap, Oral, Q6H, PRN: as needed for anxiety, 20 Cap, 0 Refill(s). Past Medical/ Family/ Social History Surgical history: [...] Drink DRANK APPROX 15 BEERS LAST NIGHT 09/10/2018 Alcohol Use History, Social Habits Yes Alcohol Use Frequency Socially Home/Environment 12/17/2014 Lives with: grand parents Substance Abuse 02/24/2017 Recreational Drug Use History No Recreational Drug Use Last 12 Months No Tobacco 12/17/2014 Tobacco Use Within Last Twelve Months Snuff/Dip Packs/Tins Daily 1 12/13/2017 Smoking Status Former smoker, quit more . Problem list: Active Problems (1) HPV (human papilloma virus) anogenital infection . Physical Examination Vital Signs Vital Signs/Vital Measures 09/10/2018 18:43 EDT Temperature Source Oral Temperature Mode Fahrenheit Temperature, Fahrenheit 98.2 Deg F Clinical Temperature, C 36.8 Deg C Peripheral Pulse Rate 97 bpm Respiratory Rate 20 Breaths/Min Blood Pressure Location Arm, right upper Blood Pressure Source Non-Invasive BP Device Systolic Blood Pressure 165 mmHg HI Diastolic Blood Pressure 99 mmHg HI Oxygen Saturation 99 % Oxygen Therapy Mode Room air . Measurements 09/10/2018 18:43 EDT Height Source Stated Height Entry Format [place] Height/Length, B[place] (ft) 5 ft Height/Length [place] 7 Inch CLINICALHEIGHT 170.18 cm [place] Body Weight 65.16 kg Weight Source, ED Critical estimated dosing weight Weight Entry Format [place] Weight [place] lb 180 lb CLINICALWEIGHT 81.82 kg Body Surface Area (BSA) 1.94 m2 Body Mass Index 28.3 kg/m2 HI . Oxygen Saturation 09/10/2018 18:43 EDT Oxygen Saturation 99 % . General: Alert, no acute distress. Skin: Warm, dry, intact. Head: Normocephalic, atraumatic. Neck: Supple. Eye: Pupils are equal, round and reactive to light, extraocular movements are intact. Ears, nose, mouth and throat: Oral mucosa moist. Cardiovascular: Rate rapid, rhythm is regular. No murmurs. No pretibial or pedal edema. DP PT are 2+=. Respiratory: Lungs are clear to auscultation, respirations are non-labored. Gastrointestinal: Soft, Nontender, Non distended. Genitourinary: No tenderness, no discharge. Back: Nontender, Normal range of motion. Musculoskeletal: Normal ROM, normal strength. Neurological: Alert and oriented to person, place, time, and situation, No focal neurological deficit observed. Lymphatics: No lymphadenopathy. Psychiatric: Cooperative. Medical Decision Making Electrocardiogram: Time 09/10/2018 19:00:00, rate 72, normal sinus rhythm, left axis deviation. Results review: Lab results : Lab Results 09/10/2018 19:42 EDT UDS Amp Negative UDS Dulce Negative UDS Benzo Negative UDS Todd Negative UDS Meth Negative UDS Methamp Negative UDS Opi Negative UDS PCP Negative UDS TCA Negative UDS THC Positive 09/10/2018 18:54 EDT Sodium Level 141 mmol/L Potassium Level 3.8 mmol/L Chloride Level 101 mmol/L Carbon Dioxide Level 21 mmol/L Anion Gap 23 HI Glucose Level 104 mg/dL Blood Urea Nitrogen 9 mg/dL Creatinine Level 0.98 mg/dL eGFR 116 mL/min/1.73m2 eGFR NonAfrican 96 mL/min/1.73m2 Bun/Creatinine 9.184 NA Calcium Level 10.3 mg/dL HI Protein Total 8.8 Gram/dL HI Albumin Level 5.3 Gram/dL HI Globulin 3.5 Gram/dL A/G Ratio 1.5 Bilirubin Total 1.0 mg/dL Alk Phos 95 Units/Liter AST 30 Units/Liter ALT 44 Units/Liter Magnesium Level 1.5 mg/dL LOW Troponin I Ultra <0.017 ng/mL WBC 11.1 K/uL HI RBC 5.58 Million/uL Hgb 17.1 Gram/dL Hct 48.0 % MCV 86.0 fL MCH 30.6 pg MCHC 35.6 Gram/dL Platelet Count 357 K/uL MPV 10.1 fL RDW 12.5 % Neut % 65.7 % Neut # 7.28 K/uL HI Lymph % 26.6 % Lymph # 2.95 K/uL [place] % 6.5 % [place] # 0.72 K/uL Eos % 0.6 % Eos # 0.07 K/uL Baso % 0.4 % Baso # 0.04 K/uL Slide Review No IG# 0 x10(3)/uL IG% 0 % . Radiology results: no ptx, normal cardiac silhouette. Reexamination/ Reevaluation Time: 09/10/2018 20:02:00 . Assessment: Patient now states he drank many beers over last 3 days.. Impression and Plan Diagnosis Palpitations - Discharge, Emergency medicine, Medical Plan Condition: Improved, Stable. Prescriptions: Prescription [facility]: Vistaril 25 mg oral capsule (Prescribe): 1 Cap, Oral, QID, PRN: as needed for anxiety, 12 Cap, 0 Refill(s). Patient was given the following educational materials: Palpitations. Follow up with: ; Follow up with primary care provider Within 2 to 3 days. Counseled: Patient, Family. Orders: Launch Orders Admit/Transfer/Discharge: Discharge (Order): Start: 09/10/2018 20:04 EDT, Discharge to: Home. documented in this encounter Plan of Treatment Not on file documented as of this encounter Visit Diagnoses Not on filedocumented in this encounter
--- OUTSIDE RECORDS SUMMARY | 2025-03-09 09:19 | XMS_ITS | Encounter Summary ---
Author Organization [employer] ([place], [place], [place], [place], [place]) Address [address] [place] [address] Care Team Providers Care Health Data Analyst Name Role Phone Unavailable Primary Care Provider Unavailabl e Encounter Details Date Type Department Care Team (Late st Contact Info) Description 04/19/2018 Transcribed Document [facility] [place] [place] Family Medicine [facility] [place] [address] ProviderSherine MD [address] [place] [id number] Social History Tobacco Use Types Packs/Day Years Used Date Smoking Tobacco: Never Assessed Sex and Gender Information Value Date Recorded Sex Assigned at Not on file Legal Sex Male 5:59 PM CDT Gender Identity Not on file Sexual Orientation Not on file documented as of this encounter Miscellaneous Notes * Cerner Conversion Note - Sherine ProviderMD - 04/19/2018 12:28 AM DOOR OPENER [facility] [address] [place] [address] Patient Information Name: JEVON ALONSO Age: 22 Years Date of : 1995 Arrival Time: 04/18/2018 20:54:00 Diagnosis Abdominal pain; Blood in stool; Paresthesia Primary Care Physician: FLORENCE BENSON DR Provider Information Primary Provider: SIDDHARTH ARORA Secondary Provider: JEVON ALONSO has been given the following list of patient education materials, prescriptions and follow-up instructions: Follow-up Instructions: With: Address: When: September [address] [facility], [address] [place], [place] [id number] Business (1) Within 2 to 3 days With: Address: When: Follow up with primary care provider Within 2 to 3 days With: Address: When: [facility] Comments: If you need assistance establishing primary care, or if you have any questions, please contact us at [phone]. Patient Education Materials: Abdominal Pain, Adult Abdominal pain can be caused by many things. Often, abdominal pain is not serious and it gets better with no treatment or by being treated at home. However, sometimes abdominal pain is serious. Your health care provider will do a medical history and a physical exam to try to determine the cause of your abdominal pain. Follow these instructions at home: ??? Take [id number] and prescription medicines only as told by your health care provider. Do not take a laxative unless told by your health care provider. ??? Drink enough fluid to keep your urine clear or pale yellow. ??? Watch your condition for any changes. ??? Keep all follow-up visits as told by your health care provider. This is important. Contact a health care provider if: ??? Your abdominal pain changes or gets worse. ??? You are not hungry or you lose weight without trying. ??? You are constipated or have diarrhea for more than 2?3 days. ??? You have pain when you urinate or have a bowel movement. ??? Your abdominal pain wakes you up at night. ??? Your pain gets worse with meals, after eating, or with certain foods. ??? You are throwing up and cannot keep anything down. ??? You have a fever. Get help right away if: ??? Your pain does not go away as soon as your health care provider told you to expect. ??? You cannot stop throwing up. ??? Your pain is only in areas of the abdomen, such as the right side or the left lower portion of the abdomen. ??? You have bloody or black stools, or stools that look like tar. ??? You have severe pain, cramping, or bloating in your abdomen. ??? You have signs of dehydration, such as: ? Dark urine, very little urine, or no urine. ? Cracked lips. ? Dry mouth. ? Sunken eyes. ? Sleepiness. ? Weakness. This information is not intended to replace advice given to you by your health care provider. Make sure you discuss any questions you have with your health care provider. Document Released: 01/11/2006 Document Revised: 10/21/2016 Document Reviewed: 09/14/2016 [employer] Interactive Patient Education ? 2017 [employer] Lower Gastrointestinal Bleeding Lower gastrointestinal (GI) bleeding is the result of bleeding from the colon, rectum, or anal area. The colon is the last part of the digestive tract, where stool, also called feces, is formed. If you have lower GI bleeding, you may see blood in or on your stool. It may be bright red. Lower GI bleeding often stops without treatment. Continued or heavy bleeding needs emergency treatment at the hospital. What are the causes? Lower GI bleeding may be caused by: ??? A condition that causes pouches to form in the colon over time (diverticulosis). ??? Swelling and irritation (inflammation) in areas with diverticulosis (diverticulitis). ??? Inflammation of the colon (inflammatory bowel disease). ??? Swollen veins in the rectum (hemorrhoids). ??? Painful tears in the anus (anal fissures), often caused by passing hard stools. ??? Cancer of the colon or rectum. ??? Noncancerous growths (polyps) of the colon or rectum. ??? A bleeding disorder that impairs the formation of blood clots and causes easy bleeding (coagulopathy). ??? An abnormal weakening of a blood vessel where an artery and a vein come together (arteriovenous malformation). What increases the risk? You are more likely to develop this condition if: ??? You are older than 60 years of age. ??? You take aspirin or NSAIDs on a regular basis. ??? You take anticoagulant or antiplatelet drugs. ??? You have a history of high-dose X-ray treatment (radiation therapy) of the colon. ??? You recently had a colon polyp removed. What are the signs or symptoms? Symptoms of this condition include: ??? Bright red blood or blood clots coming from your rectum. ??? Bloody stools. ??? Black or maroon-colored stools. ??? Pain or cramping in the abdomen. ??? Weakness or dizziness. ??? Racing heartbeat. How is this diagnosed? This condition may be diagnosed based on: ??? Your symptoms and medical history. ??? A physical exam. During the exam, your health care provider will check for signs of blood loss, such as low blood pressure and a rapid pulse. ??? Tests, such as: ? Flexible sigmoidoscopy. In this procedure, a flexible tube with a camera on the end is used to examine your anus and the first part of your colon to look for the source of bleeding. ? Colonoscopy. This is similar to a flexible sigmoidoscopy, but the camera can extend all the way to the uppermost part of your colon. ? Blood tests to measure your red blood cell count and to check for coagulopathy. ? An imaging study of your colon to look for a bleeding site. In some cases, you may have X-rays taken after a dye or radioactive substance is injected into your bloodstream (angiogram). How is this treated? Treatment for this condition depends on the cause of the bleeding. Heavy or persistent bleeding is treated at the hospital. Treatment may include: ??? Getting fluids through an IV tube inserted into one of your veins. ??? Getting blood through an IV tube (blood transfusion). ??? Stopping bleeding through high-heat coagulation, injections of certain medicines, or applying surgical clips. This can all be done during a colonoscopy. ??? Having a procedure that involves first doing an angiogram and then blocking blood flow to the bleeding site (embolization). ??? Stopping some of your regular medicines for a certain amount of time. ??? Having surgery to remove part of the colon. This may be needed if bleeding is severe and does not respond to other treatment. Follow these instructions at home: ??? Take gbhq-jqn-egtjpmj and prescription medicines only as told by your health care provider. You may need to avoid aspirin, NSAIDs, or other medicines that increase bleeding. ??? Eat foods that are high in fiber. This will help keep your stools soft. These foods include whole grains, legumes, fruits, and vegetables. Eating 1?3 prunes each day works well for many people. ??? Drink enough fluid to keep your urine clear or pale yellow. ??? Keep all follow-up visits as told by your health care provider. This is important. Contact a health care provider if: ??? Your symptoms do not improve. Get help right away if: ??? Your bleeding increases. ??? You feel light-headed or you faint. ??? You feel weak. ??? You have severe cramps in your back or abdomen. ??? You pass large blood clots in your stool. ??? Your symptoms get worse. This information is not intended to replace advice given to you by your health care provider. Make sure you discuss any questions you have with your health care provider. Document Released: 08/18/2016 Document Revised: 09/08/2016 Document Reviewed: 08/18/2016 [employer] Interactive Patient Education ? 2017 [employer] Paresthesia Introduction Paresthesia is an abnormal burning or prickling sensation. This sensation is generally felt in the hands, arms, legs, or feet. However, it may occur in any part of the body. Usually, it is not painful. The feeling may be described as: ??? Tingling or numbness. ??? Pins and needles. ??? Skin crawling. ??? Buzzing. ??? Limbs falling asleep. ??? Itching. Most people experience temporary (transient) paresthesia at some time in their lives. Paresthesia may occur when you breathe too quickly (hyperventilation). It can also occur without any apparent cause. Commonly, paresthesia occurs when pressure is placed on a nerve. The sensation quickly goes away after the pressure is removed. For some people, however, paresthesia is a long-lasting (chronic) condition that is caused by an underlying disorder. If you continue to have paresthesia, you may need further medical evaluation. Follow these instructions at home: Watch your condition for any changes. Taking the following actions may help to lessen any discomfort that you are feeling: ??? Avoid drinking alcohol. ??? Try acupuncture or massage to help relieve your symptoms. ??? Keep all follow-up visits as directed by your health care provider. This is important. Contact a health care provider if: ??? You continue to have episodes of paresthesia. ??? Your burning or prickling feeling gets worse when you walk. ??? You have pain, cramps, or dizziness. ??? You develop a rash. Get help right away if: ??? You feel weak. ??? You have trouble walking or moving. ??? You have problems with speech, understanding, or vision. ??? You feel confused. ??? You cannot control your bladder or bowel movements. ??? You have numbness after an injury. ??? You faint. This information is not intended to replace advice given to you by your health care provider. Make sure you discuss any questions you have with your health care provider. Document Released: 03/24/2003 Document Revised: 09/08/2016 Document Reviewed: 03/30/2015 ? 2017 [employer] Allergies: No Known Medication Allergies Medication Information: Prescription Display dicyclomine (Bentyl 20 mg oral tablet) 1 Tab, Oral, Tab, QID, # 28 Tab, 0 Refill(s) Laboratory or Other Results This Visit (last charted value for your 04/18/2018 visit) Hematology 04/18/18 22:17:00 WBC: 11.1 K/uL -- Normal range between ( 4.2 and 9.1 ) RBC: 4.88 Million/uL -- Normal range between ( 4.63 and 6.08 ) Hct: 44.1 % -- Normal range between ( 40.1 and 51.0 ) Hgb: 15.4 Gram/dL -- Normal range between ( 13.7 and 17.5 ) Platelet Count: 294 K/uL -- Normal range between ( 163 and 369 ) MCH: 31.6 pg -- Normal range between ( 25.6 and 32.2 ) MCHC: 34.9 Gram/dL -- Normal range between ( 32.2 and 36.5 ) MCV: 90.4 fL -- Normal range between ( 79.0 and 94.8 ) Slide Review: No Eos %: 2.7 % -- Normal range between ( 0.0 and 7.0 ) [place] #: 0.65 K/uL -- Normal range between ( 0.16 and 1.00 ) Eos #: .30 K/uL -- Normal range between ( .00 and .80 ) [place] %: 5.9 % -- Normal range between ( 3.0 and 9.0 ) Baso %: 0.4 % -- Normal range between ( 0.0 and 2.0 ) Baso #: 0.04 K/uL -- Normal range between ( 0.00 and 0.20 ) RDW: 12.6 % -- Normal range between ( 11.6 and 14.4 ) Neut %: 56.6 % -- Normal range between ( 34.0 and 71.0 ) Neut #: 6.30 K/uL -- Normal range between ( 1.56 and 6.13 ) Lymph %: 34.2 % -- Normal range between ( 19.0 and 53.0 ) Lymph #: 3.80 K/uL -- Normal range between ( 1.18 and 3.74 ) MPV: 9.8 fL -- Normal range between ( 9.4 and 12.4 ) IG#: 0 x10(3)/uL IG%: 0 % -- Normal range between ( 0 and 1 ) Urinalysis 04/18/18 21:41:00 Urine Nitrite: Negative Urine Leukocyte Esterase: Negative Urine Appearance: Clear Urine Glucose Dipstick: Negative Urine Blood Dipstick: Negative Urine Type: U CleanCatch Urine Urobilinogen Dipstick: 0.2 EU/dL Urine Protein Dipstick: Negative Urine Color: Yellow Urine Ketones Dipstick: Trace Urine pH Dipstick: 7.0 -- Normal range between ( 6.0 and 8.0 ) Urine Bilirubin Dipstick: Negative Urine Specific [place]: 1.015 -- Normal range between ( 1.005 and 1.030 ) General Chemistry 04/18/18 23:34:00 Creatinine Level: 1.26 mg/dL -- Normal range between ( 0.70 and 1.30 ) Sodium Level: 143 mmol/L -- Normal range between ( 136 and 145 ) Potassium Level: 3.7 mmol/L -- Normal range between ( 3.5 and 5.1 ) Chloride Level: 104 mmol/L -- Normal range between ( 98 and 107 ) Carbon Dioxide Level: 25 mmol/L -- Normal range between ( 21 and 32 ) Anion Gap: 18 -- Normal range between ( 9 and 20 ) Bilirubin Total: 0.1 mg/dL -- Normal range between ( 0.2 and 1.0 ) A/G Ratio: 1.1 -- Normal range between ( 1.1 and 2.5 ) ALT: 47 Units/Liter -- Normal range between ( 16 and 63 ) AST: 28 Units/Liter -- Normal range between ( 15 and 37 ) Globulin: 3.8 Gram/dL -- Normal range between ( 1.5 and 4.5 ) Alk Phos: 86 Units/Liter -- Normal range between ( 46 and 116 ) Bun/Creatinine: 7.937 Calcium Level: 9.0 mg/dL -- Normal range between ( 8.5 and 10.1 ) eGFR : 87 mL/min/1.73m2 eGFR NonAfrican: 72 mL/min/1.73m2 Glucose Level: 95 mg/dL -- Normal range between ( 74 and 106 ) Blood Urea Nitrogen: 10 mg/dL -- Normal range between ( 7 and 18 ) Protein Total: 8.0 Gram/dL -- Normal range between ( 6.4 and 8.2 ) Albumin Level: 4.2 Gram/dL -- Normal range between ( 3.4 and 5.0 ) 04/18/18 22:17:00 Magnesium Level: 2.0 mg/dL -- Normal range between ( 1.8 and 2.4 ) Toxicology 04/18/18 22:17:00 Alcohol: 161 mg/dL 04/18/18 22:00:00 UDS Amp: Negative UDS Dulce: Negative UDS Benzo: Negative UDS Todd: Negative UDS Meth: Negative UDS Methamp: Negative UDS Opi: Negative UDS PCP: Negative UDS TCA: Negative UDS THC: Negative Computed Tomography 04/18/18 22:49:17 CT Abdomen Pelvis W: CT Abdomen Pelvis W 04/18/18 22:34:00 CT Head WO: CT Head WO Medication Comment: Procedures: Laboratory Orders Name Status ALC Completed AutoDiff Completed CBCD Completed CMP Completed MG Completed UAC Ordered UAMICIND Completed UDS3 Completed Radiology Orders Name Status CT Abdomen Pelvis W Completed CT Head WO Completed Cardiology Orders No cardiology orders were placed. This statement is to verify that JEVON ALONSO was seen at [facility] Emergency Department on ,04/19/2018 00:28:15. This is not a work excuse, if [...] along the way. As a healthcare provider, [facility] recommends that you stop smoking. Assistance with quitting is available by contacting 0-676-ATRQ-NOW. This is a free resource providing counseling, [...] Electronic Communications Privacy Act 18 U.S.C. ???Sections 6491-4572,?? and contain information intended for the specified [...] sure to sign up for the My [facility] patient portal, which gives you 07/11 access to your medical information ??? including these discharge instructions ??? using your computer, smartphone, or tablet. Just go to [employer] to get started. Questions? Call . Acknowledgment [...] Yes____ No____ Nurse Providing Instructions: Emergency Physician: documented in this encounter Plan of Treatment Not on file documented as of this encounter Visit Diagnoses Not on filedocumented in this encounter
--- OUTSIDE RECORDS SUMMARY | 2025-03-09 09:19 | XMS_ITS | Encounter Summary ---
Author Organization [employer] ([place], [place], [place], [place], [place]) Address [address] [place] [address] Care Team Providers Care Power System Dispatcher Name Role Phone Unavailable Primary Care Provider Unavailabl e Encounter Details Date Type Department Care Team (Late st Contact Info) Description 09/10/2018 Transcribed Document [facility] Family Medicine [facility] [place] [address] ProviderSherine MD [address] [place] [id number] Social History Tobacco Use Types Packs/Day Years Used Date Smoking Tobacco: Never Assessed Sex and Gender Information Value Date Recorded Sex Assigned at Not on file Legal Sex Male 5:59 PM CDT Gender Identity Not on file Sexual Orientation Not on file documented as of this encounter Miscellaneous Notes * [employer] Conversion Note - Sherine Martinez MD - 09/10/2018 8:25 PM CDT ED Discharge Entered On: 09/10/2018 20:26 EDT Performed On: 09/10/2018 20:25 EDT by Jarad Slaughter REGISTERED_NURSE_EMERGENCY_[facility] Discharge Process Patient Disposition : Discharge Personal Belongings With Patient : Yes Patient Education Completed : Yes Teaching Evaluation : Verbalizes understanding Education Comment : med prescribed, f/up with MD, information to read in d/c papers IV Discontinued : Yes Nursing Documentation Completed : Yes Jarad Slaughter REGISTERED_NURSE_EMERGENCY_[facility] - 09/10/2018 20:25 EDT ED Discharge Vital Signs Peripheral Pulse Rate : 84 bpm Respiratory Rate : 24 Breaths/Min ([place]) Systolic Blood Pressure : 136 mmHg Diastolic Blood Pressure : 75 mmHg Oxygen Saturation : 98 % Oxygen Therapy Mode : Room air Jarad Slaughter REGISTERED_NURSE_EMERGENCY_[facility] - 09/10/2018 20:25 EDT Electronically signed by [facility], [facility] Conversion Director Of Online Merchandising [employer] at 08/01/2022 5:13 PM CDT documented in this encounter Plan of Treatment Not on file documented as of this encounter Visit Diagnoses Not on filedocumented in this encounter
--- OUTSIDE RECORDS SUMMARY | 2025-03-09 09:19 | XMS_ITS | Encounter Summary ---
Author Organization [employer] ([place], [place], [place], [place], [place]) Address [address] [place] [address] Care Team Providers Care Well Treatment Offsider Name Role Phone Unavailable Primary Care Provider Unavailabl e Encounter Details Date Type Department Care Team (Late st Contact Info) Description 04/19/2018 Transcribed Document [facility] [place] [address] ProviderSherine MD [address] [place] [id number] Social History Tobacco Use Types Packs/Day Years Used Date Smoking Tobacco: Never Assessed Sex and Gender Information Value Date Recorded Sex Assigned at Not on file Legal Sex Male 5:59 PM CDT Gender Identity Not on file Sexual Orientation Not on file documented as of this encounter Miscellaneous Notes * [employer] Conversion Note - Historical ProviderMD - 04/19/2018 2:51 AM 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
--- OUTSIDE RECORDS SUMMARY | 2025-03-09 09:19 | XMS_ITS | Encounter Summary ---
Author Organization [employer] ([place], [place], [place], [place], [place]) Address [address] [place] [address] Care Team Providers Care Training And Quality Manager Name Role Phone Unavailable Primary Care Provider Unavailabl e Encounter Details Date Type Department Care Team (Late st Contact Info) Description 09/10/2018 Transcribed Document [facility] [place] Family Medicine [facility] [place] [address] ProviderSherine MD [address] [place] [phone] Social History Tobacco Use Types Packs/Day Years Used Date Smoking Tobacco: Never Assessed Sex and Gender Information Value Date Recorded Sex Assigned at Not on file Legal Sex Male 5:59 PM CDT Gender Identity Not on file Sexual Orientation Not on file documented as of this encounter Miscellaneous Notes * [employer] Conversion Note - Sherine ProviderMD - 09/10/2018 6:40 PM CDT ED Assessment Entered On: 09/10/2018 18:51 EDT Performed On: 09/10/2018 18:49 EDT by EDUARDO FAUSTIN RN ED Quick Look Assessment Level of Consciousness : Alert Affect/Behavior : Appropriate, Calm, Cooperative Orientation : Oriented x 4 EDUARDO FAUSTIN RN - 09/10/2018 18:49 EDT ED General-Functional Assess Information Obtained From : Patient Preferred Communication Mode : Verbal Communication Barrier : None Primary Language : [place] Any Spiritual/Cultural Needs or Requests : No Currently in Unsafe Situation : No EDUARDO FAUSTIN RN - 09/10/2018 18:49 EDT Social Habits Smoking Status : 4 or less cigarettes(less than 1/4 pack)/day in last 30 days Smokeless Tobacco Status : Never Desires Tobacco Cessation Medication : No Reason for No Tobacco Cessation Medication : ED/procedural patient only Desires Tobacco Cessation Calc : 1 EDUARDO FAUSTIN RN - 09/10/2018 18:49 EDT Social History (As Of: 09/10/2018 18:51:14 EDT) Tobacco: Use in Last 12 Months: Snuff/Dip. [...] 02/24/2017 18:35:44 EST by Lyudmila Tang RN) Alcohol Use History Yes. Alcohol Use Frequency Socially. (Last Updated: 09/10/2018 18:50:29 EDT by EDUARDO FAUSTIN, KURT) Substance Abuse: Drug Use Hx: No. Use in Last 12 Months: No. (Last Updated: 02/24/2017 18:35:05 EST by Lyudmila Tang RN) Home/Environment: Lives with grand parents. (Last Updated: 12/17/2014 11:51:00 EDT by ROSANGELA HAZEL RN) Cardiovascular ASMT, ED Cardiovascular Assessment WDL : WDL with exceptions Cardiovascular Symptoms : Chest discomfort at rest, Palpitations at rest Heart Rhythm : Regular Nail Bed Color : [place] EDUARDO FAUSTIN RN - 09/10/2018 18:49 EDT Respiratory Respiratory Assessment WDL : EDUARDO RODRIGUEZ RN - 09/10/2018 18:49 EDT documented in this encounter Plan of Treatment Not on file documented as of this encounter Visit Diagnoses Not on filedocumented in this encounter
--- OUTSIDE RECORDS SUMMARY | 2025-03-09 09:19 | XMS_ITS | Clinical Summary ---
Author Organization [facility] Address [address] [place] [address] Care Team Providers Care Supervisor Machine Workers Name Role Phone Unavailable Primary Care Provider [...]
== END 2025-03-09 23:59 | disposition home or self-care (01) ==
LOC: RAD 09:17
PROVIDERS: Visit Provider Nurse Practitioner
DX: M25.522 Pain in left elbow (principal)
CPT/HCPCS: 73080